=== PATIENT | female | born 1970 | race Hispanic/Latino ===

== ENCOUNTER 2017-05-05 00:41 | Emergency (ER) | payer SELFPAY ==
[2017-05-05] MEDS ORDERED: ONDANSETRON 4 MG (ODT) TAB ONE (02:17)
[2017-05-05] MEDS ORDERED: TRAMADOL HCL 50 MG TAB ONE (02:19)
--- NOTE | 2017-05-05 04:14 | ER ---
Nurse's Notes [facility] Name: Marilee Henderson Age: 46 yrs Sex: Female : 1970 Arrival Date: 05/05/2017 Time: 00:42 Bed 7 Private MD: Diagnosis: Acute headache. S/P head injury. Vomiting Presentation: 05/05 01:14 Presenting complaint: Patient states: she was leaning down yesterday and hit her head bb on the door causing her to see black and feel faint she has a headache and numbness around her mouth as well as abdominal pain, nausea, and vomiting. Transition of care: patient was not received from another setting of care. Onset of symptoms was May 04, 2017. Care prior to arrival: None. 01:14 Method Of Arrival: Ambulatory bb 01:14 Acuity: KEVIN 3 bb Triage Assessment: :16 General: Appears in no apparent distress. uncomfortable, Behavior is calm, cooperative. bb Pain: Complains of pain in head Pain currently is 10 out of 10 on a pain scale. Neuro: Level of Consciousness is awake, alert, obeys commands, Oriented to person, place, time, situation. Cardiovascular: No deficits noted. Respiratory: Respiratory effort is unlabored. GI: No deficits noted. Reports nausea, vomiting. Musculoskeletal: Circulation, motion, and sensation intact. 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 - Social history:: Smoking status: Patient/guardian denies using tobacco. Screenin:31 Abuse screen: Denies threats or abuse. Nutritional screening: No deficits noted. tl2 Tuberculosis screening: No symptoms or risk factors identified. Fall Risk None identified. Assessment: :31 General: Appears in no apparent distress. comfortable, Behavior is calm, cooperative, tl2 appropriate for age. Pain: Complains of pain in forehead. Neuro: Level of Consciousness is awake, alert, obeys commands, Oriented to person, place, time, situation. Cardiovascular: Denies chest pain. Respiratory: Airway is patent Respiratory effort is even, unlabored, Respiratory pattern is regular, symmetrical. GI: Reports nausea, vomiting. : No signs and/or symptoms were reported regarding the genitourinary system. Derm: Skin is pink, warm \T\ dry. 02:30 Reassessment: Patient appears in no apparent distress at this time. Patient and/or tl2 family updated on plan of care and expected duration. Pain level reassessed. Patient is alert, oriented x 3, equal unlabored respirations, skin warm/dry/pink. pt returned from CT. 04:33 Reassessment: Patient appears in no apparent distress at this time. Patient and/or tl2 family updated on plan of care and expected duration. Pain level reassessed. Patient is alert, oriented x 3, equal unlabored respirations, skin warm/dry/pink. Pt verbalized understanding of discharge instructions, need for follow up and prescription usage Patient states feeling better. Vital Signs: 01:16 BP 123 / 76; Pulse 78; Resp 18 S; Temp 97.3(TE); Pulse Ox 98% on R/A; Weight 81.65 kg bb (R); Height 5 ft. 0 in. (152.40 cm) (R); Pain 10/10; 02:51 BP 124 / 78; Pulse 70; Resp 18; Pulse Ox 98% on R/A; tl2 03:43 BP 114 / 74; Pulse 71; Resp 18; Pulse Ox 98% ; tl2 04:33 BP 125 / 84; Pulse 70; Resp 18; Pulse Ox 100% on R/A; tl2 01:16 Body Mass Index 35.15 (81.65 kg, 152.40 cm) ED Course: 00:42 Patient arrived in ED. al2 01:16 Triage completed. bb 01:16 Arm band placed on right wrist. bb 01:27 Keiry Pathak, RN is Primary Nurse. tl2 01:31 Patient has correct armband on for positive identification. Bed in low position. Call tl2 light in reach. Side rails up X2. 01:38 Yared Chapa MD is Attending Physician. pkl 03:06 CT completed. Patient tolerated procedure well. Patient moved to NV via stretcher. Patient moved back from CT. 04:33 No provider procedures requiring assistance completed. Patient did not have IV access tl2 during this emergency room visit. Administered Medications: 02:01 Drug: Zofran 4 mg Route: PO; tl2 04:35 Follow up: Response: No adverse reaction; Nausea is decreased tl2 02:01 Drug: traMADol 50 mg Route: PO; tl2 04:35 Follow up: Response: No adverse reaction; Pain is decreased tl2 Outcome: 04:13 Discharge ordered by . pknina 04:33 Discharged to home ambulatory, with family. tl2 04:33 Condition: stable 04:33 Discharge instructions given to patient, family, Instructed on discharge instructions, follow up and referral plans. medication usage, Demonstrated understanding of instructions, follow-up care, medications, Prescriptions given X 1. 04:36 Patient left the ED. tl2 Signatures: Yared Chapa MD MD pkl Hagler, Ervin eh Ballard, Brenda, RN RN Keiry Scott RN RN tl2 Angeli Tovar
--- NOTE | 2017-05-05 04:14 | EDPHYS ---
Physician Documentation [facility] Name: Marilee Henderson Age: 46 yrs Sex: Female : 1970 Arrival Date: 05/05/2017 Time: 00:42 Bed 7 Private MD: ED Physician Yared Chapa HPI: 05/05 01:50 This 46 yrs old Female presents to ER via Ambulatory with complaints of Fall pkl Injury, Nausea/Vomiting. 01:50 Details of fall: The patient fell from an upright position. Onset: The symptoms/episode pkl began/occurred yesterday. Associated injuries: The patient sustained injury to the head, contusion. Patient started vomiting X 3 today. 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 - Social history:: Smoking status: Patient/guardian denies using tobacco. ROS: 01:50 Eyes: Negative for injury, pain, redness, and discharge, ENT: Negative for injury, pkl pain, and discharge, Neck: Negative for injury, pain, and swelling, Cardiovascular: Negative for chest pain, palpitations, and edema, Respiratory: Negative for shortness of breath, cough, wheezing, and pleuritic chest pain, Abdomen/GI: Negative for abdominal pain, nausea, vomiting, diarrhea, and constipation, Back: Negative for injury and pain, : Negative for injury, bleeding, discharge, and swelling, MS/Extremity: Negative for injury and deformity, Skin: Negative for injury, rash, and discoloration. 01:50 Neuro: Positive for headache. Exam: 01:50 Head/Face: Normocephalic, atraumatic. Eyes: Pupils equal round and reactive to light, pkl extra-ocular motions intact. Lids and lashes normal. Conjunctiva and sclera are non-icteric and not injected. Cornea within normal limits. Periorbital areas with no swelling, redness, or edema. ENT: Nares patent. No nasal discharge, no septal abnormalities noted. Tympanic membranes are normal and external auditory canals are clear. Oropharynx with no redness, swelling, or masses, exudates, or evidence of obstruction, uvula midline. Mucous membranes moist. Neck: Trachea midline, no thyromegaly or masses palpated, and no cervical lymphadenopathy. Supple, full range of motion without nuchal rigidity, or vertebral point tenderness. No Meningismus. Chest/axilla: Normal chest wall appearance and motion. Nontender with no deformity. No lesions are appreciated. Cardiovascular: Regular rate and rhythm with a normal S1 and S2. No gallops, murmurs, or rubs. Normal PMI, no JVD. No pulse deficits. Respiratory: Lungs have equal breath sounds bilaterally, clear to auscultation and percussion. No rales, rhonchi or wheezes noted. No increased work of breathing, no retractions or nasal flaring. Abdomen/GI: Soft, non-tender, with normal bowel sounds. No distension or tympany. No guarding or rebound. No evidence of tenderness throughout. Back: No spinal tenderness. No costovertebral tenderness. Full range of motion. Skin: Warm, dry with normal turgor. Normal color with no rashes, no lesions, and no evidence of cellulitis. MS/ Extremity: Pulses equal, no cyanosis. Neurovascular intact. Full, normal range of motion. Neuro: Awake and alert, GCS 15, oriented to person, place, time, and situation. Cranial nerves II-XII grossly intact. Motor strength 5/5 in all extremities. Sensory grossly intact. Cerebellar exam normal. Normal gait. Vital Signs: 01:16 BP 123 / 76; Pulse 78; Resp 18 S; Temp 97.3(TE); Pulse Ox 98% on R/A; Weight 81.65 kg bb (R); Height 5 ft. 0 in. (152.40 cm) (R); Pain 10/10; 02:51 BP 124 / 78; Pulse 70; Resp 18; Pulse Ox 98% on R/A; tl2 03:43 BP 114 / 74; Pulse 71; Resp 18; Pulse Ox 98% ; tl2 04:33 BP 125 / 84; Pulse 70; Resp 18; Pulse Ox 100% on R/A; tl2 01:16 Body Mass Index 35.15 (81.65 kg, 152.40 cm) anh MDM: 01:39 Patient medically screened. pkl 04:12 Data reviewed: vital signs, nurses notes, radiologic studies, CT scan. pkl 05/05 01:46 Order name: CT Head Brain wo Cont pkl Administered Medications: 02:01 Drug: Zofran 4 mg Route: PO; tl2 04:35 Follow up: Response: No adverse reaction; Nausea is decreased tl2 02:01 Drug: traMADol 50 mg Route: PO; tl2 04:35 Follow up: Response: No adverse reaction; Pain is decreased tl2 Disposition: 05/05/17 04:13 Discharged to Home. Impression: Acute headache. S/P head injury. Vomiting. - Condition is Stable. - Prescriptions for Zofran 4 mg Oral Tablet - take 1 tablet by ORAL route every 12 hours As needed; 6 tablet. - Medication Reconciliation Form, Thank You Letter, Antibiotic Education, Prescription Opioid Use form. - Follow up: Private Physician; When: 2 - 3 days; Reason: Re-evaluation by your physician. - Problem is new. - Symptoms have improved. Signatures: Dispatcher [employer] EDYared Rivas MD MD pkl Augusta Barlow, RN RN Keiry Scott RN RN tl2
[2017-05-05 04:41] VITALS: TEMP 97.3
[2017-05-05 04:53] VITALS: BP 125/84; O2SAT 100
--- NOTE | 2017-05-05 11:15 | RAD REPORT ---
EXAM DESCRIPTION: CT - Head Brain Wo Cont - 05/05/2017 6:41 am CLINICAL HISTORY: Head injury status post fall. Concussion with nausea and vomiting and numbness COMPARISON: October 2016 TECHNIQUE: Computed axial tomography of the head was obtained. IV contrast was not requested.A preli minary report was given by virtual radiologic in review prior to this dictation. All CT scans are performed using dose optimization technique as appropriate and may include automated exposure control or mA/KV adjustment according to patient size. FINDINGS: An intracranial bleed is not seen . The ventricles are normal in caliber. No extra-axial fluid collection is noted. Moderate low-density areas within periventricular, deep and subcortical white matter likely represent ischemic changes secondary to small vessel disease. Fluid within the sinuses/ mastoids is not seen. IMPRESSION: No acute intracranial abnormality is seen. If patient's symptoms persist MRI of the bra in would be recommended.
== END 2017-05-05 04:36 | disposition home or self-care (01) ==
LOC: ER 00:41
DX: S09.90XA Unspecified injury of head, initial encounter (principal); R11.10 Vomiting, unspecified; W22.8XXA Striking against or struck by other objects, initial encounter; Y93.89 Activity, other specified; Y92.009 Unspecified place in unspecified non-institutional (private) residence as the place of occurrence of the external cause; E11.9 Type 2 diabetes mellitus without complications; F41.9 Anxiety disorder, unspecified
CPT/HCPCS: 70450; 99284

== ENCOUNTER 2017-08-19 21:21 | Emergency (ER) | payer SELFPAY ==
[2017-08-19] MEDS ORDERED: KETOROLAC 30 MG/ML INJ ONE (22:27)
[2017-08-19] MEDS ORDERED: NA CHLORIDE 0.9% 500 ML ONE (22:28)
[2017-08-19 22:42] LABS: Absolute Lymphocytes (CBC) 2.2 K/uL (0.7-4.9); Absolute Monocytes 0.3 K/uL (0.1-1.3); Absolute Neutrophil 3.4 K/uL (1.8-8.0); Basophils % 0.6 % (0-1.3); Eosinophils % 0.6 % (0-4.4); Hematocrit 41.3 % (36.0-45.0); Lymphocytes % 36.7 % (15.3-44.8); MCH 29.2 pg (27.0-35.0); MCV 86.5 fL (80-100); MPV 9.5 fL (7.6-11.3); Monocytes % 5.5 % (3.3-12.3); RBC Red Blood Cell Count 4.77 M/uL (3.86-4.86)
[2017-08-19 23:06] LABS: ALT/SGPT 38 U/L (12-78); AST/SGOT 27 U/L (15-37); Albumin 3.7 g/dL (3.4-5.0); Alkaline Phosphatase 81 U/L (45-117); BUN Blood Urea Nitrogen 13 mg/dL (7-18); Bicarbonate 29 mmol/L (21-32); Bilirubin Total 0.3 mg/dL (0.2-1.0); Potassium 3.6 mmol/L (3.5-5.1); Protein, Total 7.4 g/dL (6.4-8.2); Sodium Level 135 mmol/L (136-145)
[2017-08-19 23:08] LABS: Glucose Level 450 mg/dL (74-106)
--- NOTE | 2017-08-19 23:41 | ER ---
Nurse's Notes [facility] Name: Marilee Henderson Age: 46 yrs Sex: Female : 1970 Arrival Date: 08/19/2017 Time: 21:22 Bed 28 Private MD: Foreign Gutierrez H Diagnosis: Low back pain;Type 2 diabetes mellitus-neuropathy, uncontrolled Presentation: 08/19 21:24 Presenting complaint: Significant other states: "She is having weakness in both legs. lk1 Especially in her bones and it hurts to walk. Its been like that for quite a while. The left side hurts all the way to her back.". Transition of care: patient was not received from another setting of care. Onset of symptoms was August 05, 2017. Risk Assessment: Do you want to hurt yourself or someone else? Patient reports no desire to harm self or others. Initial Sepsis Screen: Does the patient meet any 2 criteria? No. Patient's initial sepsis screen is negative. Does the patient have a suspected source of infection? No. Patient's initial sepsis screen is negative. Care prior to arrival: None. 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 - Social history:: Smoking status: Patient/guardian denies using tobacco. - Ebola Screening: : No symptoms or risks identified at this time. - Family history:: not pertinent. Screenin:36 Abuse screen: Denies threats or abuse. Nutritional screening: No deficits noted. mb3 Tuberculosis screening: No symptoms or risk factors identified. Fall Risk No fall in past 12 months (0 pts). Secondary diagnosis (15 points) No IV (0 pts). Ambulatory Aid- Crutches/Cane/Walker (15 pts). Gait- Weak (10 pts.). Mental Status- Overestimates/Forgets Limitations (15 pts.). Total Dailey Fall Scale indicates High Risk Score (45 or more points). Fall prevention measures have been instituted. Side Rails Up X 2 Placed Close to Nursing Station Frequent Obs/Assessments Occuring Family Present and informed to notify staff if the need to leave the bedside As available patient and family educated on Fall Prevention Program and Strategies. Assessment: 22:44 General: Appears in no apparent distress. comfortable, Behavior is calm, cooperative, mb3 appropriate for age. Pain: Complains of pain in pt having pain to lower back radiating down legs. Neuro: No deficits noted. Cardiovascular: No deficits noted. Respiratory: No deficits noted. GI: No deficits noted. No signs and/or symptoms were reported involving the gastrointestinal system. Vital Signs: 21:26 BP 141 / 71; Pulse 80; Resp 14; Temp 97.0(TE); Pulse Ox 99% on R/A; Weight 83.91 kg lk1 (R); Height 5 ft. 5 in. (165.10 cm) (R); Pain 10/10; 08/20 01:16 BP 137 / 85; Pulse 93; Resp 20; Pulse Ox 99% on R/A; mb3 08/19 21:26 Body Mass Index 30.79 (83.91 kg, 165.10 cm) lk1 ED Course: 08/19 21:22 Patient arrived in ED. es 21:23 Foreign Gutierrez DO is Private Physician. es 21:26 Triage completed. lk1 21:28 Arm band placed on left wrist. lk1 21:31 Chong Jones, CATERINA is Primary Nurse. mb3 21:48 Marvin Salazar MD is Attending Physician. carline 22:29 Inserted saline lock: 20 gauge in left antecubital area, using aseptic technique. Blood mb3 collected. 22:35 Lumbar Spine (3 Views) XRAY Sent. mb3 22:45 X-ray completed. Patient tolerated procedure well. la2 22:45 Lumbar Spine (3 Views) XRAY In Process Unspecified. EDMS 23:08 Notified ED physician of a critical lab result(s). glucose 450. fc 23:40 Foreign Gutierrez DO is Referral Physician. carline 08/20 01:16 No provider procedures requiring assistance completed. IV discontinued, intact, mb3 bleeding controlled, No redness/swelling at site. Pressure dressing applied. 01:17 Patient has correct armband on for positive identification. mb3 Administered Medications: 08/19 22:30 Drug: NS 0.9% 500 ml Route: IV; Rate: bolus; Site: left antecubital; mb3 08/20 00:29 Follow up: Response: No adverse reaction; IV Status: Completed infusion; IV Intake: mb3 500ml 08/19 22:30 Drug: TORadol 30 mg Route: IVP; Site: left antecubital; mb3 08/20 00:29 Follow up: Response: No adverse reaction mb3 00:10 Drug: Insulin Regular Human 10 units {Co-Signature: greg (Yary Goncalves RN).} Route: mb3 IVP; Site: left antecubital; 00:30 Follow up: Response: No adverse reaction mb3 00:10 Drug: Insulin Regular Human 10 units {Co-Signature: greg (Yary Goncalves RN).} Route: mb3 Sub-Q; Site: left upper arm; 00:30 Follow up: Response: No adverse reaction mb3 00:12 Drug: metFORMIN 1000 mg Route: PO; mb3 00:30 Follow up: Response: No adverse reaction mb3 00:29 Drug: NS 0.9% 500 ml Route: IV; Rate: bolus; Site: left antecubital; mb3 01:15 Follow up: Response: No adverse reaction; IV Status: Completed infusion; IV Intake: mb3 1000ml Point of Care Testing: Blood Glucose: 01:16 Blood Glucose: 213 mg/dL; mb3 Ranges: Intake: 00:29 IV: 500ml; Total: 500ml. mb3 01:15 IV: 1000ml; Total: 1500ml. mb3 Outcome: 08/19 23:40 Discharge ordered by MD. crowley 08/20 01:16 Discharged to home ambulatory, with family. mb3 Condition: stable Discharge instructions given to patient, family, Instructed on discharge instructions, follow up and referral plans. medication usage, Demonstrated understanding of instructions, follow-up care, medications. 01:17 Prescriptions given X x5 mb3 01:18 Patient left the ED. mb3 Addendum: 08/25/2017 17:15 Addendum: Culture Results: Positive urine culture. Patient was not prescribed i w antibiotics at discharge. Report given to MAITE for further evaluation and then to road driver for follow up with patient. Phone call Attempt #1 initially left voice mail, called back and stated pt was feeling better, asymptomatic for UTI symptoms. Signatures: Dispatcher [employer] Marvin Mosqueda MD MD cha Salyer, Edna es Chretien, Felicia, RN RN fc Lamar Mack RN RN iw Kluge, Leah, RN RN lk1 Leigh Bhakta Mark, RN RN mb3 Yary Goncalves RN fc
--- NOTE | 2017-08-19 23:41 | EDPHYS ---
Physician Documentation [facility] Name: Marilee Henderson Age: 46 yrs Sex: Female : 1970 Arrival Date: 08/19/2017 Time: 21:22 Bed 28 Private MD: Foreign Gutierrez H ED Physician Marvin Salazar HPI: 08/19 22:07 This 46 yrs old Female presents to ER via Ambulatory with complaints of LEG carline WEAKNESS AND PAIN. 22:07 The patient presents with pain. The complaints affect the right leg and left leg. carline Context: The problem was sustained. Onset: The symptoms/episode began/occurred 3 month(s) ago. Modifying factors: The symptoms are alleviated by nothing. the symptoms are aggravated by nothing. Associated signs and symptoms: The patient has no apparent associated signs or symptoms. Treatment prior to arrival includes: no previous treatment. Severity of symptoms: At their worst the symptoms were mild, moderate, in the emergency department the symptoms are unchanged. The patient has experienced similar episodes in the past, multiple times. 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 - Social history:: Smoking status: Patient/guardian denies using tobacco. - Ebola Screening: : No symptoms or risks identified at this time. - Family history:: not pertinent. ROS: 22:07 Constitutional: Negative for fever, chills, and weight loss, Eyes: Negative for injury, carline pain, redness, and discharge, ENT: Negative for injury, pain, and discharge, Neck: Negative for injury, pain, and swelling, Cardiovascular: Negative for chest pain, palpitations, and edema, Respiratory: Negative for shortness of breath, cough, wheezing, and pleuritic chest pain, Abdomen/GI: Negative for abdominal pain, nausea, vomiting, diarrhea, and constipation, Back: Negative for injury and pain, : Negative for injury, bleeding, discharge, and swelling, Skin: Negative for injury, rash, and discoloration, Neuro: Negative for headache, weakness, numbness, tingling, and seizure, Psych: Negative for depression, anxiety, suicide ideation, homicidal ideation, and hallucinations, Allergy/Immunology: Negative for hives, rash, and allergies, Endocrine: Negative for neck swelling, polydipsia, polyuria, polyphagia, and marked weight changes, Hematologic/Lymphatic: Negative for swollen nodes, abnormal bleeding, and unusual bruising. 22:07 MS/extremity: Positive for pain, of the right leg and left leg. Exam: 22:07 Constitutional: This is a well developed, well nourished patient who is awake, alert, carline and in no acute distress. Head/Face: Normocephalic, atraumatic. Eyes: Pupils equal round and reactive to light, extra-ocular motions intact. Lids and lashes normal. Conjunctiva and sclera are non-icteric and not injected. Cornea within normal limits. Periorbital areas with no swelling, redness, or edema. ENT: Nares patent. No nasal discharge, no septal abnormalities noted. Tympanic membranes are normal and external auditory canals are clear. Oropharynx with no redness, swelling, or masses, exudates, or evidence of obstruction, uvula midline. Mucous membranes moist. Neck: Trachea midline, no thyromegaly or masses palpated, and no cervical lymphadenopathy. Supple, full range of motion without nuchal rigidity, or vertebral point tenderness. No Meningismus. Chest/axilla: Normal chest wall appearance and motion. Nontender with no deformity. No lesions are appreciated. Cardiovascular: Regular rate and rhythm with a normal S1 and S2. No gallops, murmurs, or rubs. Normal PMI, no JVD. No pulse deficits. Respiratory: Lungs have equal breath sounds bilaterally, clear to auscultation and percussion. No rales, rhonchi or wheezes noted. No increased work of breathing, no retractions or nasal flaring. Abdomen/GI: Soft, non-tender, with normal bowel sounds. No distension or tympany. No guarding or rebound. No evidence of tenderness throughout. Back: No spinal tenderness. No costovertebral tenderness. Full range of motion. Skin: Warm, dry with normal turgor. Normal color with no rashes, no lesions, and no evidence of cellulitis. MS/ Extremity: Pulses equal, no cyanosis. Neurovascular intact. Full, normal range of motion. Neuro: Awake and alert, GCS 15, oriented to person, place, time, and situation. Cranial nerves II-XII grossly intact. Motor strength 5/5 in all extremities. Sensory grossly intact. Cerebellar exam normal. Normal gait. Psych: Awake, alert, with orientation to person, place and time. Behavior, mood, and affect are within normal limits. 22:07 Musculoskeletal/extremity: ROM: full active range of motion, full passive range of motion, Circulation is intact in all extremities. Sensation intact. Compartment Syndrome exam of affected extremity: is normal. DVT Exam: no swelling, no tenderness, negative Homans' sign noted on exam, no appreciated bluish discoloration, no erythema, no increased warmth, pain. Vital Signs: 21:26 BP 141 / 71; Pulse 80; Resp 14; Temp 97.0(TE); Pulse Ox 99% on R/A; Weight 83.91 kg lk1 (R); Height 5 ft. 5 in. (165.10 cm) (R); Pain 10/10; 08/20 01:16 BP 137 / 85; Pulse 93; Resp 20; Pulse Ox 99% on R/A; mb3 08/19 21:26 Body Mass Index 30.79 (83.91 kg, 165.10 cm) lk1 MDM: 08/19 21:48 Patient medically screened. [facility] 08/19 22:07 Order name: CBC with Diff; Complete Time: 23:00 [facility] 08/19 22:07 Order name: Comprehensive Metabolic Panel; Complete Time: 23:38 [facility] 08/19 22:07 Order name: Lumbar Spine (3 Views) XRAY [facility] 08/19 22:59 Order name: Urine Culture [facility] 08/20 00:20 Order name: Urine Dipstick--Ancillary (enter results) 08/19 22:59 Order name: Urine Dipstick-Ancillary (obtain specimen); Complete Time: 00:23 [facility] Administered Medications: 22:30 Drug: NS 0.9% 500 ml Route: IV; Rate: bolus; Site: left antecubital; mb3 08/20 00:29 Follow up: Response: No adverse reaction; IV Status: Completed infusion; IV Intake: mb3 500ml 08/19 22:30 Drug: TORadol 30 mg Route: IVP; Site: left antecubital; mb3 08/20 00:29 Follow up: Response: No adverse reaction mb3 00:10 Drug: Insulin Regular Human 10 units {Co-Signature: greg (Yary Goncalves RN).} Route: mb3 IVP; Site: left antecubital; 00:30 Follow up: Response: No adverse reaction mb3 00:10 Drug: Insulin Regular Human 10 units {Co-Signature: greg (Yary Goncalves RN).} Route: mb3 Sub-Q; Site: left upper arm; 00:30 Follow up: Response: No adverse reaction mb3 00:12 Drug: metFORMIN 1000 mg Route: PO; mb3 00:30 Follow up: Response: No adverse reaction mb3 00:29 Drug: NS 0.9% 500 ml Route: IV; Rate: bolus; Site: left antecubital; mb3 01:15 Follow up: Response: No adverse reaction; IV Status: Completed infusion; IV Intake: mb3 1000ml Point of Care Testing: Blood Glucose: 01:16 Blood Glucose: 213 mg/dL; mb3 Ranges: Critical Glucose Levels:Adult <50 mg/dl or >400 mg/dl <40 mg/dl or >180 mg/dl Disposition: 08/19/17 23:40 Discharged to Home. Impression: Low back pain, Type 2 diabetes mellitus - neuropathy, uncontrolled. - Condition is Stable. - Discharge Instructions: Type 2 Diabetes Mellitus, Adult, Diabetic Neuropathy, Type 2 Diabetes Mellitus, Adult, [id number]. - Prescriptions for gabapentin 300 mg Oral capsule - take 1 capsule by ORAL route 2 times per day; 60 capsule. Tylenol- Codeine #3 300-30 mg Oral Tablet - take 2 tablets by ORAL route every 6 hours As needed; 26 tablet. Skelaxin 800 mg Oral Tablet - take 1 tablet by ORAL route every 8 hours As needed; 30 tablet. Motrin IB 200 mg Oral Tablet - take 2 tablet by ORAL route every 6 hours As needed as needed with food; 30 tablet. Metformin 1,000 mg Oral Tablet - take 1 tablet by ORAL route every 12 hours with morning and evening meals; 20 tablet. - Medication Reconciliation Form, Thank You Letter, Antibiotic Education, Prescription Opioid Use form. - Follow up: Foreign Gutierrez; When: 2 - 3 days; Reason: Recheck today's complaints, Continuance of care, Re-evaluation by your physician. - Problem is new. - Symptoms have improved. Signatures: Dispatcher [employer] EDMarvin Chong MD MD cha Kluge, Leah, RN RN lk1 Chong Jones, RN RN mb3 Yary Goncalves RN fc Corrections: (The following items were deleted from the chart) 01:18 07 23:40 08/19/2017 23:40 Discharged to Home. Impression: Low back pain; Type 2 mb3 diabetes mellitus - neuropathy, uncontrolled. Condition is Stable. Discharge Instructions: Type 2 Diabetes Mellitus, Adult, Diabetic Neuropathy, Type 2 Diabetes Mellitus, Adult, [id number]. Prescriptions for gabapentin 300 mg Oral capsule - take 1 capsule by ORAL route 2 times per day; 60 capsule, Tylenol-Codeine #3 300-30 mg Oral Tablet - take 2 tablets by ORAL route every 6 hours As needed; 26 tablet, Skelaxin 800 mg Oral Tablet - take 1 tablet by ORAL route every 8 hours As needed; 30 tablet, Motrin IB 200 mg Oral Tablet - take 2 tablet by ORAL route every 6 hours As needed as needed with food; 30 tablet. and Forms are Medication Reconciliation Form, Thank You Letter, Antibiotic Education, Prescription Opioid Use. Follow up: Foreign Gutierrez; When: 2 - 3 days; Reason: Recheck today's complaints, Continuance of care, Re-evaluation by your physician. Problem is new. Symptoms have improved. carline
[2017-08-20] MEDS ORDERED: NA CHLORIDE 0.9% 1,000 ML ONE (00:08)
[2017-08-20] MEDS ORDERED: METFORMIN HCL 500 MG TAB ONE (00:08)
[2017-08-20] MEDS ORDERED: INSULIN -REGULAR HUMAN 50 UNIT/0.5 ML ML ONE (00:08)
[2017-08-20 00:24] LABS: Urine Blood 1+ (NEG); Urine Glucose 2+ (NEG); Urine Protein NEGATIVE (NEG)
[2017-08-20 01:42] VITALS: TEMP 97; O2SAT 99
[2017-08-20 01:44] VITALS: BP 137/85
--- NOTE | 2017-08-20 06:51 | RAD REPORT ---
EXAM DESCRIPTION: RAD - Lumbar Spine 3 Views - 08/19/2017 10:49 pm CLINICAL HISTORY: Back pain, left lower extremity pain, bilateral leg weakness COMPARISON: None. FINDINGS: A three-view lumbar spine examination was performed. Lumbar bodies are normal in height an d normal in AP alignment. Very minimal left convex curvature of the lumbar spine is present. No fract ure or acute bony process seen. L2-3 disc space narrowing present with mild endplate spurring. No sig nificant facet joint degenerative change. No pars defects identified. IMPRESSION: Disc and endplate degenerative change at L2-3. No acute findings. Concerns for disc herniation, central canal abnormality or occult bone process can be addressed with MR imaging.
== END 2017-08-20 01:18 | disposition home or self-care (01) ==
LOC: ER 21:21
DX: E11.40 Type 2 diabetes mellitus with diabetic neuropathy, unspecified (principal); E11.65 Type 2 diabetes mellitus with hyperglycemia
CPT/HCPCS: 36415; 72100; 80053; 81003; 82962; 85025; 87077; 87086; 87088; 87186; 96361; 96372; 96374; 96375; 99284; J7030

== ENCOUNTER 2018-01-28 18:12 | Emergency (ER) | payer SELFPAY ==
--- NOTE | 2018-01-28 19:03 | ER ---
Nurse's Notes [facility] Name: Marilee Henderson Age: 47 yrs Sex: Female : 1970 Arrival Date: 01/28/2018 Time: 18:15 Bed 28 Private MD: Foreign Gutierrez H Diagnosis: Diabetes mellitus due to underlying condition with diabetic neuropathy, unspecified;Medication Refill Presentation: 01/28 18:16 Presenting complaint: Child states: shes been complaining of pain on bilateral legs for hj months now and its getting worse; reports swelling; reports SOB; denies fever and chills;. Transition of care: patient was not received from another setting of care. Onset of symptoms was January 28, 2018. Risk Assessment: Do you want to hurt yourself or someone else? Patient reports no desire to harm self or others. Initial Sepsis Screen: Does the patient meet any 2 criteria? No. Patient's initial sepsis screen is negative. Does the patient have a suspected source of infection? No. Patient's initial sepsis screen is negative. Care prior to arrival: None. 18:16 Method Of Arrival: Ambulatory 18:16 Acuity: KEVIN 3 hj Triage Assessment: 18:19 General: Appears in no apparent distress. uncomfortable, Behavior is calm, cooperative, hj appropriate for age. Pain: Complains of pain in right leg and left leg Pain currently is 10 out of 10 on a pain scale. 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 - Social history:: Smoking status: Patient/guardian denies using tobacco, Patient/guardian denies using alcohol. - Ebola Screening: : Patient negative for fever greater than or equal to 101.5 degrees Fahrenheit, and additional compatible Ebola Virus Disease symptoms Patient denies exposure to infectious person Patient denies travel to an Ebola-affected area in the 21 days before illness onset. - Family history:: not pertinent. - Hospitalizations: : No recent hospitalization is reported. - History obtained from: spouse. Screenin:19 Abuse screen: Denies threats or abuse. Denies injuries from another. Nutritional hj screening: No deficits noted. Tuberculosis screening: No symptoms or risk factors identified. Fall Risk None identified. Assessment: 18:35 General: Appears in no apparent distress. comfortable, well groomed, well developed, kr2 well nourished, Behavior is calm, cooperative, appropriate for age. Pain: Complains of pain in lower back Pain radiates to right leg and left leg both legs but is worse in left leg Pain currently is 5 out of 10 on a pain scale. Quality of pain is described as aching, sharp, shooting, Pain began gradually, Is continuous, Alleviated by rest, Aggravated by increased activity. Neuro: Level of Consciousness is awake, alert, obeys commands, Oriented to person, place, time, situation, Appropriate for age Radio Officer are equal bilaterally Moves all extremities. Tingling in left foot and left leg. Cardiovascular: Capillary refill < 3 seconds in bilateral fingers Patient's skin is warm and dry. Respiratory: Airway is patent Respiratory effort is even, unlabored, Respiratory pattern is regular, symmetrical, Breath sounds are clear bilaterally. GI: Abdomen is flat, non-distended. EENT: Oral mucosa is moist. Derm: Skin is intact, is healthy with good turgor, Skin is pink, warm \T\ dry. Musculoskeletal: Circulation, motion, and sensation intact. 19:22 Reassessment: Patient appears in no apparent distress at this time. Patient and/or kr2 family updated on plan of care and expected duration. Pain level reassessed. Patient is alert, oriented x 3, equal unlabored respirations, skin warm/dry/pink. Patient and family verbalized understanding of importance of patient following up with primary doctor for DM management. Vital Signs: 18:19 BP 134 / 72; Pulse 84; Resp 18; Temp 98.4(TE); Pulse Ox 100% on R/A; Weight 68.04 kg; hj Height 5 ft. 2 in. (157.48 cm); Pain 10/10; 19:22 BP 130 / 68; Pulse 80; Resp 16; Pulse Ox 99% ; kr2 18:19 Body Mass Index 27.44 (68.04 kg, 157.48 cm) ED Course: 18:15 Patient arrived in ED. sb2 18:15 Foreign Gutierrez DO is Private Physician. sb2 18:18 Triage completed. hj 18:19 Arm band placed on left wrist. hj 18:21 Patient has correct armband on for positive identification. Placed in gown. Bed in low hj position. Call light in reach. Side rails up X 1. Adult w/ patient. 18:32 Debbie Sanders FNP is PHCP. kav 18:32 Gokul Cardona MD is Attending Physician. kav 18:35 Vani Beach, CATERINA is Primary Nurse. kr2 19:01 Foreign Gutierrez DO is Referral Physician. kav 19:23 No provider procedures requiring assistance completed. kr2 19:23 Patient did not have IV access during this emergency room visit. kr2 Administered Medications: No medications were administered Point of Care Testing: Blood Glucose: 19:24 Blood Glucose: 391 mg/dL; kr2 19:24 Reported to NICOLE Rodrigues. No new orders kr2 Ranges: Outcome: 19:03 Discharge ordered by . kav 19:23 Discharged to home ambulatory, with family. kr2 19:23 Condition: good 19:23 Discharge instructions given to patient, family, Instructed on discharge instructions, follow up and referral plans. medication usage, Demonstrated understanding of instructions, follow-up care, medications, Prescriptions given X 3. 19:25 Patient left the ED. kr2 Signatures: Debbie Sanders FNP DRY PAN OPERATOR kaNaren Batista RN RN Vani Beach RN RN kr2 Livia Knowles sb2 Corrections: (The following items were deleted from the chart) 18:22 18:19 68.04 kg; Height 5 ft. 2 in.; BMI: 27.4; Pain 10/10; hj hj 18:23 18:19 Pulse 84bpm; Resp 18bpm; Pulse Ox 100% RA; Temp 98.4F Temporal; 68.04 kg; Height hj 5 ft. 2 in.; BMI: 27.4; Pain 10/10; hj 19:24 18:56 Blood Glucose: Notes=Reported to NICOLE Rodrigues, Blood Glucose Ukbmczd=703 mg/dL. kr2 kr2 19:24 19:22 Reassessment: Patient appears in no apparent distress at this time. Patient kr2 and/or family updated on plan of care and expected duration. Pain level reassessed. Patient is alert, oriented x 3, equal unlabored respirations, skin warm/dry/pink. kr2
--- NOTE | 2018-01-28 19:03 | EDPHYS ---
Physician Documentation [facility] Name: Marilee Henderson Age: 47 yrs Sex: Female : 1970 Arrival Date: 01/28/2018 Time: 18:15 Bed 28 Private MD: Foreign Gutierrez H ED Physician Gokul Cardona HPI: 01/28 18:32 This 47 yrs old Female presents to ER via Ambulatory with complaints of Leg kav Pain. 18:54 The patient presents with pain, that is chronic. The complaints affect the right leg kav and left leg. Context: resulted from Ran out of her diabetic medication Metformin 1000 mg po bid, Gabapentin 300 mg po bid and Skelaxin 800 mg po q 8 hours approximately 2 months ago and needs a medication refill. She reports that she has not seen her PCP/Dr. Gutierrez as she has no money to go and see the physician.. Onset: The symptoms/episode began/occurred 2 month(s) ago, and became worse. Severity of symptoms: At their worst the symptoms were moderate, this morning. The patient has experienced similar episodes in the past, chronically. The patient has not recently seen a physician. 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 - Social history:: Smoking status: Patient/guardian denies using tobacco, Patient/guardian denies using alcohol. - Ebola Screening: : Patient negative for fever greater than or equal to 101.5 degrees Fahrenheit, and additional compatible Ebola Virus Disease symptoms Patient denies exposure to infectious person Patient denies travel to an Ebola-affected area in the 21 days before illness onset. - Family history:: not pertinent. - Hospitalizations: : No recent hospitalization is reported. - History obtained from: spouse. ROS: 18:57 Constitutional: Negative for fever, chills, and weight loss, Eyes: Negative for injury, kav pain, redness, and discharge, ENT: Negative for injury, pain, and discharge, Neck: Negative for injury, pain, and swelling, Cardiovascular: Negative for chest pain, palpitations, and edema, Respiratory: Negative for shortness of breath, cough, wheezing, and pleuritic chest pain, Abdomen/GI: Negative for abdominal pain, nausea, vomiting, diarrhea, and constipation, Back: Negative for injury and pain, : Negative for injury, bleeding, discharge, and swelling, Skin: Negative for injury, rash, and discoloration, Neuro: Negative for headache, weakness, numbness, tingling, and seizure, Psych: Negative for depression, anxiety, suicide ideation, homicidal ideation, and hallucinations, Allergy/Immunology: Negative for hives, rash, and allergies, Endocrine: Negative for neck swelling, polydipsia, polyuria, polyphagia, and marked weight changes, Hematologic/Lymphatic: Negative for swollen nodes, abnormal bleeding, and unusual bruising. 18:57 MS/extremity: Positive for pain, tingling, of the left leg and right leg, Negative for injury or acute deformity, decreased range of motion, ecchymosis, erythema. Exam: 18:57 Constitutional: This is a well developed, well nourished patient who is awake, alert, kav and in no acute distress. Head/Face: Normocephalic, atraumatic. Eyes: Pupils equal round and reactive to light, extra-ocular motions intact. Lids and lashes normal. Conjunctiva and sclera are non-icteric and not injected. Cornea within normal limits. Periorbital areas with no swelling, redness, or edema. ENT: Nares patent. No nasal discharge, no septal abnormalities noted. Tympanic membranes are normal and external auditory canals are clear. Oropharynx with no redness, swelling, or masses, exudates, or evidence of obstruction, uvula midline. Mucous membranes moist. Neck: Trachea midline, no thyromegaly or masses palpated, and no cervical lymphadenopathy. Supple, full range of motion without nuchal rigidity, or vertebral point tenderness. No Meningismus. Chest/axilla: Normal chest wall appearance and motion. Nontender with no deformity. No lesions are appreciated. Cardiovascular: Regular rate and rhythm with a normal S1 and S2. No gallops, murmurs, or rubs. Normal PMI, no JVD. No pulse deficits. Respiratory: Lungs have equal breath sounds bilaterally, clear to auscultation and percussion. No rales, rhonchi or wheezes noted. No increased work of breathing, no retractions or nasal flaring. Abdomen/GI: Soft, non-tender, with normal bowel sounds. No distension or tympany. No guarding or rebound. No evidence of tenderness throughout. Back: No spinal tenderness. No costovertebral tenderness. Full range of motion. Skin: Warm, dry with normal turgor. Normal color with no rashes, no lesions, and no evidence of cellulitis. Neuro: Awake and alert, GCS 15, oriented to person, place, time, and situation. Cranial nerves II-XII grossly intact. Motor strength 5/5 in all extremities. Sensory grossly intact. Cerebellar exam normal. Normal gait. Psych: Awake, alert, with orientation to person, place and time. Behavior, mood, and affect are within normal limits. 18:57 Musculoskeletal/extremity: Extremities: noted in the right leg: pain, noted in the left leg: pain, ROM: no acute changes, full active range of motion, in all extremities, full passive range of motion, in all extremities, Circulation is intact in all extremities. Pulses: are normal with no appreciated deficits, Perfusion: the patient is normally perfused throughout, pink, warm, noted to have brisk capillary refill, Perfusion: the extremity is normally perfused throughout, pink, warm, with brisk capillary refill, Calf tenderness, is absent, bilaterally, Edema, is not appreciated, Sensation intact. Tingling of extremity. Weight bearing: able to fully bear weight, without difficulty, Tendon exam: specific tendon testing normal through active and passive range of motion DVT Exam: No signs of deep vein thrombosis. Vital Signs: 18:19 BP 134 / 72; Pulse 84; Resp 18; Temp 98.4(TE); Pulse Ox 100% on R/A; Weight 68.04 kg; hj Height 5 ft. 2 in. (157.48 cm); Pain 10/10; 19:22 BP 130 / 68; Pulse 80; Resp 16; Pulse Ox 99% ; kr2 18:19 Body Mass Index 27.44 (68.04 kg, 157.48 cm) MDM: 18:32 Medical screening is not applicable. kav 18:57 Differential diagnosis: diabetic neuropathy, dvt. Data reviewed: vital signs, nurses kav notes. Counseling: I had a detailed discussion with the patient and/or guardian regarding: the historical points, exam findings, and any diagnostic results supporting the discharge/admit diagnosis, the need for outpatient follow up, a family practitioner. 01/28 18:54 Order name: MISAEL; Complete Time: 18:57 kav Administered Medications: No medications were administered Point of Care Testing: Blood Glucose: 19:24 Blood Glucose: 391 mg/dL; kr2 19:24 Reported to NICOLE Rodrigues. No new orders kr2 Ranges: Critical Glucose Levels:Adult <50 mg/dl or >400 mg/dl <40 mg/dl or >180 mg/dl Disposition: 01/29 07:36 Co-signature as Attending Physician, Gokul Cardona MD. rn Disposition: 01/28/18 19:03 Discharged to Home. Impression: Diabetes mellitus due to underlying condition with diabetic neuropathy, unspecified, Medication Refill. - Condition is Stable. - Discharge Instructions: Diabetes and Foot Care, Medicine Refill at the Emergency Department, Neuropathic Pain, Diabetic Neuropathy, Blood Glucose Monitoring, Adult, Diabetes and Exercise. - Prescriptions for Metformin 1,000 mg Oral Tablet - take 1 tablet by ORAL route every 12 hours with morning and evening meals; 60 tablet. Neurontin 300 mg Oral Capsule - take 1 capsule by ORAL route every 8 hours; 30 capsule. Cyclobenzaprine 10 mg Oral Tablet - take 1 tablet by ORAL route every 8 hours As needed; 30 tablet. - Medication Reconciliation Form, Thank You Letter form. - Follow up: Foreign Gutierrez DO; When: 5 - 6 days; Reason: Recheck today's complaints, Continuance of care, Re-evaluation by your physician. - Problem is chronic. - Symptoms are unchanged. - Notes: follow-up with your pcp/dr. gutierrez for further evaluation and treatment of your diabetes mellitus Signatures: Debbie Sanders, MATERIALS ENGINEER MATERIALS ENGINEER Gokul Bain MD MD rn Joaquin, Henry, RN RN hj Reaves, Karey, RN RN kr2 Corrections: (The following items were deleted from the chart) 01/28 19:25 19:03 01/28/2018 19:03 Discharged to Home. Impression: Diabetes mellitus due to kr2 underlying condition with diabetic neuropathy, unspecified; Medication Refill. Condition is Stable. Forms are Medication Reconciliation Form, Thank You Letter, Antibiotic Education, Prescription Opioid Use. Follow up: Foreign Gutierrez; When: 5 - 6 days; Reason: Recheck today's complaints, Continuance of care, Re-evaluation by your physician. Problem is chronic. Symptoms are unchanged. kav
[2018-01-28 19:37] VITALS: TEMP 98.4
[2018-01-28 19:38] VITALS: BP 130/68; O2SAT 99
== END 2018-01-28 19:25 | disposition home or self-care (01) ==
LOC: ER 18:12
DX: E11.40 Type 2 diabetes mellitus with diabetic neuropathy, unspecified (principal)
CPT/HCPCS: 82962; 99282

== ENCOUNTER 2018-09-20 19:11 | Emergency (ER) | payer SELFPAY ==
[2018-09-20 20:33] LABS: Urine Blood 1+ (NEG); Urine Glucose 2+ (NEG); Urine Protein NEGATIVE (NEG); Urine Specific Gravity <1.005 (1.005-1.030); Urine pH 5.5 (5.0-7.0)
[2018-09-20 20:37] LABS: Urine Bacteria 20-50 /HPF (<20); Urine Culture Reflex Order REFLEXED; Urine RBC <5 /HPF (NONE SEEN); Urine Yeast PRESENT (NONE SEEN)
[2018-09-20 20:53] LABS: Absolute Lymphocytes (CBC) 2.1 K/uL (0.7-4.9); Basophils % 0.4 % (0-1.3); Lymphocytes % 34.9 % (15.3-44.8); MPV 9.4 fL (7.6-11.3); RBC Red Blood Cell Count 4.71 M/uL (3.86-4.86)
[2018-09-20 21:14] LABS: ALT/SGPT 31 U/L (12-78); AST/SGOT 12 U/L (15-37); Albumin 3.5 g/dL (3.4-5.0); Alkaline Phosphatase 86 U/L (45-117); BUN Blood Urea Nitrogen 10 mg/dL (7-18); Bicarbonate 28 mmol/L (21-32); Bilirubin Direct < 0.1 mg/dL (0-0.2); Bilirubin Total 0.2 mg/dL (0.2-1.0); Lipase 174 U/L (73-393); Potassium 4.2 mmol/L (3.5-5.1); Protein, Total 7.1 g/dL (6.4-8.2); Sodium Level 135 mmol/L (136-145)
[2018-09-20 21:16] LABS: Glucose Level 470 mg/dL (74-106)
[2018-09-20] MEDS ORDERED: CEFTRIAXONE 1000 MG/VIAL ONE (22:20)
[2018-09-20] MEDS ORDERED: INSULIN -REGULAR HUMAN 50 UNIT/0.5 ML ML ONE (22:20)
[2018-09-20] MEDS ORDERED: NA CHLORIDE 0.9% 1,000 ML ONE (22:20)
[2018-09-20] MEDS ORDERED: NA CHLORIDE 0.9% 100 ML IV ONE (22:20)
--- NOTE | 2018-09-21 01:08 | ER ---
Nurse's Notes [facility] Name: Marilee Henderson Age: 48 yrs Sex: Female : 1970 Arrival Date: 09/20/2018 Time: 19:15 Bed 14 Private MD: Diagnosis: Urinary tract infection, site not specified;Diabetes mellitus due to underlying condition with hyperglycemia Presentation: 09/20 19:42 Presenting complaint: Child states: She has a blister on her right ankle that has been jb4 there for a week. She just got back from [place], and is using an antibiotic cream that she got while there, it is getting better but we wanted to get checked to make sure we are using the appropriate cream. She says she is having lower abdominal pain as well. 19:42 Transition of care: patient was not received from another setting of care. Onset of jb4 symptoms was September 13, 2018. Risk Assessment: Do you want to hurt yourself or someone else? Patient reports no desire to harm self or others. Initial Sepsis Screen: Does the patient meet any 2 criteria? No. Patient's initial sepsis screen is negative. Does the patient have a suspected source of infection? Yes: Skin breakdown/wound. Care prior to arrival: None. 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 - Social history:: Smoking status: Patient/guardian denies using tobacco, Patient/guardian denies using alcohol. - Ebola Screening: : No symptoms or risks identified at this time. Screenin:42 Abuse screen: Denies threats or abuse. Nutritional screening: No deficits noted. jb4 Tuberculosis screening: No symptoms or risk factors identified. Fall Risk None identified. Assessment: 19:42 General: Appears in no apparent distress. comfortable, Behavior is calm, cooperative, jb4 appropriate for age. Pain: Complains of pain in groin and suprapubic area Pain does not radiate. Pain currently is 0 out of 10 on a pain scale. Quality of pain is described as burning. Neuro: Level of Consciousness is awake, alert, obeys commands, Oriented to person, place, time, situation. Cardiovascular: Patient's skin is warm and dry. Respiratory: Airway is patent Respiratory effort is even, unlabored, Respiratory pattern is regular, symmetrical. GI: Reports lower abdominal pain. : Reports pain in suprapubic area. EENT: No deficits noted. No signs and/or symptoms were reported regarding the EENT system. Derm: Skin is intact, Skin is pink, warm \T\ dry. Musculoskeletal: Circulation, motion, and sensation intact. Range of motion: intact in all extremities. 21:00 Reassessment: Patient appears in no apparent distress at this time. Patient and/or jb4 family updated on plan of care and expected duration. Pain level reassessed. Patient is alert, oriented x 3, equal unlabored respirations, skin warm/dry/pink. 22:00 Reassessment: Patient appears in no apparent distress at this time. Patient and/or jb4 family updated on plan of care and expected duration. Pain level reassessed. Patient is alert, oriented x 3, equal unlabored respirations, skin warm/dry/pink. 23:00 Reassessment: Patient appears in no apparent distress at this time. Patient and/or jb4 family updated on plan of care and expected duration. Pain level reassessed. Patient is alert, oriented x 3, equal unlabored respirations, skin warm/dry/pink. 09/21 00:00 Reassessment: Patient appears in no apparent distress at this time. Patient and/or jb4 family updated on plan of care and expected duration. Pain level reassessed. Patient is alert, oriented x 3, equal unlabored respirations, skin warm/dry/pink. 01:00 Reassessment: Patient appears in no apparent distress at this time. Patient and/or jb4 family updated on plan of care and expected duration. Pain level reassessed. Patient is alert, oriented x 3, equal unlabored respirations, skin warm/dry/pink. 01:20 Reassessment: Patient appears in no apparent distress at this time. Patient and/or jb4 family updated on plan of care and expected duration. Pain level reassessed. Patient is alert, oriented x 3, equal unlabored respirations, skin warm/dry/pink. Pt son, verbalized understanding of d/c and follow up instructions. pt ambulated out of Ed with family with steady gait. Vital Signs: 09/20 19:42 BP 113 / 66; Pulse 83; Resp 16; Temp 98.1(O); Pulse Ox 100% on R/A; Weight 99.79 kg jb4 (R); Height 5 ft. 6 in. (167.64 cm) (R); Pain 0/10; 20:30 BP 113 / 69; Pulse 76; Resp 18; Pulse Ox 100% on R/A; jb4 22:00 BP 133 / 80; Pulse 78; Resp 16; Pulse Ox 100% on R/A; jb4 23:15 BP 119 / 64; Pulse 74; Resp 16; Pulse Ox 100% on R/A; jb4 09/21 01:00 BP 112 / 68; Pulse 70; Resp 16; Pulse Ox 100% on R/A; jb4 09/20 19:42 Body Mass Index 35.51 (99.79 kg, 167.64 cm) jb4 ED Course: 09/20 19:15 Patient arrived in ED. ag3 19:42 Arm band placed on right wrist. jb4 19:42 Patient has correct armband on for positive identification. Bed in low position. Call jb4 light in reach. Side rails up X 1. Pulse ox on. NIBP on. 19:44 [facility]. cp 19:44 Marvin Salazar MD is Attending Physician. cp 19:53 Kolton Ashley, CATERINA is Primary Nurse. jb4 19:57 Triage completed. jb4 20:10 Urine collected: clean catch specimen, clear. jb4 20:43 Inserted saline lock: 20 gauge in right antecubital area, using aseptic technique. mw2 Blood collected. 21:16 Notified Nurse Practitioner and/or Physician Information Engineer of a critical lab result(s), fc glucose 470. 22:17 XRAY Abdomen 1 View (KUB) In Process Unspecified. EDMS 09/21 01:00 No provider procedures requiring assistance completed. IV discontinued, intact, jb4 bleeding controlled, No redness/swelling at site. Pressure dressing applied. Administered Medications: 09/20 21:16 CANCELLED (Physician Discretion): NovoLIN R 10 units Sub-Q once cp 22:32 Drug: NS 0.9% 1000 ml Route: IV; Rate: 1 bolus; Site: right antecubital; jb4 23:30 Follow up: Response: No adverse reaction; IV Status: Completed infusion; IV Intake: jb4 1000ml 22:32 Drug: Insulin Regular Human 10 units {Co-Signature: [email or web address] (Wesley Wei RN).} Route: jb4 IVP; Site: right antecubital; 09/21 01:00 Follow up: Response: No adverse reaction; Blood sugar is lowered jb4 09/20 22:41 Drug: Rocephin - (cefTRIAXone) 1 grams Route: IVPB; Infused Over: 30 mins; Site: right jb antecubital; 23:11 Follow up: Response: No adverse reaction; IV Status: Completed infusion; IV Intake: [id number] Point of Care Testing: Blood Glucose: 20:25 Blood Glucose: 377 mg/dL; jb4 23:53 Blood Glucose: 346 mg/dL; jb4 09/21 00:40 Blood Glucose: 308 mg/dL; mw2 Ranges: Intake: 09/20 23:11 IV: 50ml; Total: 50ml. jb4 23:30 IV: 1000ml; Total: 1050ml. jb4 Outcome: 09/21 01:06 Discharge ordered by . kb 01:20 Discharged to home ambulatory, with family. jb4 01:20 Condition: stable 01:20 Discharge instructions given to patient, family, Instructed on discharge instructions, follow up and referral plans. medication usage, Demonstrated understanding of instructions, follow-up care, medications, Prescriptions given X 2. 01:37 Patient left the ED. jb4 Signatures: Dispatcher [employer] EDMS Yue Hart, Yary Arellano RN RN Marvin Dang PA PA cp Bryson, James, RN RN jb4 Jeannie Cannon mw2 Yazmin Little ag3 Wesley Wei RN [email or web address]
--- NOTE | 2018-09-21 01:09 | EDPHYS ---
Physician Documentation [facility] Name: Marilee Henderson Age: 48 yrs Sex: Female : 1970 Arrival Date: 09/20/2018 Time: 19:15 Bed 14 Private MD: SHANTELL Physician Marvin Salazar HPI: 09/20 20:04 This 48 yrs old Female presents to ER via Ambulatory with complaints of BUMP cp ON RT LEG. 20:04 The patient presents with blister. The complaints affect the medial aspect right ankle. cp Onset: The symptoms/episode began/occurred 1 week(s) ago. Associated signs and symptoms: Pertinent negatives: warmth, drainage. Patient reports she has been using antibacterial ointment from [place] and is here with son who would like wound to be checked. 20:05 Patient also c/o lower abdomen pain. 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 - Social history:: Smoking status: Patient/guardian denies using tobacco, Patient/guardian denies using alcohol. - Ebola Screening: : No symptoms or risks identified at this time. ROS: 20:10 Constitutional: Negative for body aches, chills, fever, poor PO intake. cp 20:10 Eyes: Negative for injury, pain, redness, and discharge. cp 20:10 ENT: Negative for drainage from ear(s), ear pain, sore throat, difficulty swallowing, difficulty handling secretions. 20:10 Cardiovascular: Negative for chest pain. 20:10 Respiratory: Negative for cough, shortness of breath, wheezing. 20:10 Abdomen/GI: Positive for abdominal pain, of the right lower quadrant and left lower quadrant, Negative for vomiting, diarrhea, constipation, black/tarry stool, rectal bleeding. 20:10 Back: Negative for pain at rest, pain with movement, radiated pain. 20:10 : Negative for urinary symptoms, vaginal bleeding, vaginal discharge. 20:10 Skin: Positive for blister medial aspect right ankle. 20:10 Neuro: Negative for altered mental status, headache, weakness. 20:10 All other systems are negative. Exam: 20:20 Constitutional: The patient appears in no acute distress, alert, awake, non-toxic, well cp developed, well nourished. 20:20 Head/Face: Normocephalic, atraumatic. cp 20:20 Head/face: Exam is negative for 20:20 Eyes: Periorbital structures: appear normal, Conjunctiva: normal, no exudate, no cp injection, Sclera: no appreciated abnormality, Lids and lashes: appear normal, bilaterally. 20:20 ENT: External ear(s): are unremarkable, Nose: is normal, Mouth: Lips: moist, Oral cp mucosa: pink and intact, moist, Posterior pharynx: is normal, airway is patent, no erythema, no exudate. 20:20 Neck: ROM/movement: is normal, is supple, without pain, no range of motions limitations, no nuchal rigidity. 20:20 Chest/axilla: Inspection: normal, Palpation: is normal, no crepitus, no tenderness. 20:20 Cardiovascular: Rate: normal, Rhythm: regular. 20:20 Respiratory: the patient does not display signs of respiratory distress, Respirations: normal, no use of accessory muscles, no retractions, no splinting, no tachypnea, labored breathing, is not present, Breath sounds: are clear throughout, no decreased breath sounds, no stridor, no wheezing. 20:20 Abdomen/GI: Inspection: abdomen appears normal, Bowel sounds: active, all quadrants, Palpation: soft, in all quadrants, mild abdominal tenderness, in the right lower quadrant and left lower quadrant, rebound tenderness, is not appreciated, involuntary guarding, is not appreciated. 20:20 Back: pain, that is mild, of the low back, ROM is normal. 20:20 Skin: cellulitis, is not appreciated. Vital Signs: 19:42 BP 113 / 66; Pulse 83; Resp 16; Temp 98.1(O); Pulse Ox 100% on R/A; Weight 99.79 kg jb4 (R); Height 5 ft. 6 in. (167.64 cm) (R); Pain 0/10; 20:30 BP 113 / 69; Pulse 76; Resp 18; Pulse Ox 100% on R/A; 4 22:00 BP 133 / 80; Pulse 78; Resp 16; Pulse Ox 100% on R/A; [facility] 23:15 BP 119 / 64; Pulse 74; Resp 16; Pulse Ox 100% on R/A; [facility] 09/21 01:00 BP 112 / 68; Pulse 70; Resp 16; Pulse Ox 100% on R/A; [facility] 09/20 19:42 Body Mass Index 35.51 (99.79 kg, 167.64 cm) [facility] MDM: 09/20 19:48 Patient medically screened. [facility] 21:00 Differential diagnosis: cellulitis, abscess, UTI. 23:30 Data reviewed: vital signs, nurses notes, lab test result(s). 09/20 20:01 Order name: Urine Microscopic Only; Complete Time: 21:11 09/20 21:11 Interpretation: Normal except: UWBC >50; UBACT 20-50; YEAST PRESENT; BUD PRESENT. 09/20 20:31 Order name: Basic Metabolic Panel; Complete Time: 21:34 09/20 21:35 Interpretation: Normal except: NA 135; GLUC 470; GFR 85. 09/20 20:31 Order name: CBC with Diff; Complete Time: 21:11 09/20 20:31 Order name: Creatinine for Radiology; Complete Time: 21:34 09/20 20:31 Order name: Hepatic Function; Complete Time: 21:34 09/20 21:36 Interpretation: Normal except: AST 12; GLOB 3.6; A/G 1.0. / 20:31 Order name: Lipase; Complete Time: 21:34 09/20 20:31 Order name: Urine Dipstick--Ancillary (enter results); Complete Time: 21:11 cm6 09/20 22:08 Interpretation: Normal except: UGLUC 2+; UBLD 1+; UESTR TRACE. 09/20 20:43 Order name: Urine Culture EDWI 09/20 21:49 Order name: XRAY Abdomen 1 View (KUB) 09/21 00:38 Order name: Glucose, Ancillary Testing EDWI 09/21 00:38 Order name: Glucose, Ancillary Testing EDWI 09/21 00:40 Order name: Glucose, Ancillary Testing EDMS 09/20 20:01 Order name: Urine Dipstick-Ancillary (obtain specimen); Complete Time: 20:20 cp 09/20 20:31 Order name: IV Saline Lock; Complete Time: 20:46 cp 09/20 20:31 Order name: Labs collected and sent; Complete Time: 20:46 cp Administered Medications: 21:16 CANCELLED (Physician Discretion): NovoLIN R 10 units Sub-Q once cp 22:32 Drug: NS 0.9% 1000 ml Route: IV; Rate: 1 bolus; Site: right antecubital; [facility] 23:30 Follow up: Response: No adverse reaction; IV Status: Completed infusion; IV Intake: jb4 1000ml 22:32 Drug: Insulin Regular Human 10 units {Co-Signature: [email or web address] (Wesley Wei RN).} Route: jb4 IVP; Site: right antecubital; 09/21 01:00 Follow up: Response: No adverse reaction; Blood sugar is lowered [facility] 09/20 22:41 Drug: Rocephin - (cefTRIAXone) 1 grams Route: IVPB; Infused Over: 30 mins; Site: right 4 antecubital; 23:11 Follow up: Response: No adverse reaction; IV Status: Completed infusion; IV Intake: 13dilh4 Point of Care Testing: Blood Glucose: 20:25 Blood Glucose: 377 mg/dL; jb4 23:53 Blood Glucose: 346 mg/dL; [facility] 09/21 00:40 Blood Glucose: 308 mg/dL; mw2 Ranges: Critical Glucose Levels:Adult <50 mg/dl or >400 mg/dl <40 mg/dl or >180 mg/dl Disposition: 09/21/18 01:06 Discharged to Home. Impression: Urinary tract infection, site not specified, Diabetes mellitus due to underlying condition with hyperglycemia. - Condition is Stable. - Discharge Instructions: Urinary Tract Infection, Adult, Blood Glucose Monitoring, Adult, Diabetes Mellitus and Food. - Prescriptions for Diflucan 150 mg Oral Tablet - take 1 tablet by ORAL route one time for 1 day; 1 tablet. Bactrim DS 800- 160 mg Oral Tablet - take 1 tablet by ORAL route every 12 hours for 7 days; 14 tablet. - Medication Reconciliation Form, Thank You Letter, Antibiotic Education, Prescription Opioid Use form. - Follow up: Private Physician; When: 2 - 3 days; Reason: Recheck today's complaints. - Problem is new. - Symptoms have improved. Signatures: Dispatcher [employer] EDMS Yue Hart, CONSULTING TECHNICAL DIRECTOR-C CONSULTING TECHNICAL DIRECTOR-Marvin Tobar MD MD cha Page, Corey, PA Kolton Whalen cp, RN RN jb4 Wesley Wei RN [email or web address] Corrections: (The following items were deleted from the chart) 09/20 21:16 21:14 NovoLIN R 10 units Sub-Q once ordered. cp 09/21 01:37 01:06 09/21/2018 01:06 Discharged to Home. Impression: Urinary tract infection, site jb4 not specified; Diabetes mellitus due to underlying condition with hyperglycemia. Condition is Stable. Discharge Instructions: Urinary Tract Infection, Adult, Blood Glucose Monitoring, Adult, Diabetes Mellitus and Food. Prescriptions for Diflucan 150 mg Oral Tablet - take 1 tablet by ORAL route one time for 1 day; 1 tablet, Bactrim DS 800-160 mg Oral Tablet - take 1 tablet by ORAL route every 12 hours for 7 days; 14 tablet. and Forms are Medication Reconciliation Form, Thank You Letter, Antibiotic Education, Prescription Opioid Use. Follow up: Private Physician; When: 2 - 3 days; Reason: Recheck today's complaints. Problem is new. Symptoms have improved. kb
[2018-09-21 03:53] VITALS: TEMP 98.1; O2SAT 100
[2018-09-21 04:04] VITALS: BP 119/64
--- NOTE | 2018-09-21 13:06 | RAD REPORT ---
EXAM DESCRIPTION: RAD - Abdomen 1 View (KUB) - 09/20/2018 10:17 pm CLINICAL HISTORY: Abdomen pain. FINDINGS: The bowel gas pattern is unremarkable. The abdomen appears somewhat lucent. Most likely this is not significant. Subtle free air can also re sult in this appearance. If the patient has clinical symptoms to suggest an acute abdomen then an upr ight abdominal plain film series recommended Dr. Cardona of the emergency room notified 12:55 p.m. September 21, 2018
== END 2018-09-21 01:37 | disposition home or self-care (01) ==
LOC: ER 19:11
DX: N39.0 Urinary tract infection, site not specified (principal); E11.65 Type 2 diabetes mellitus with hyperglycemia; F41.9 Anxiety disorder, unspecified
CPT/HCPCS: 36415; 74018; 80048; 80076; 81003; 81015; 82962; 83690; 85025; 87086; 87088; 96365; 96375; 99284; J7030

== ENCOUNTER 2020-03-09 11:15 | Emergency (ER) | payer SELFPAY ==
--- OUTSIDE RECORDS SUMMARY | 2020-03-09 11:20 | XMS REPORT | Continuity of Care Document ---
:1970 Author Organization [facility] t Address [address] [place] [address] [address]. [address] [place] [address] Care Team Providers Name Role Phone Opal DIGGS, T Attending Clinician Unavailable Pcp, Does Not Have A Attending Clinician Lab, Fam Pob I Attending Clinician Unavailable Problems This patient has no known problems. Allergies, Adverse Reactions, Alerts This patient has no known allergies or adverse reactions. Medications This patient has no known medications. Procedures This patient has no known procedures. Encounters Start End Encounter Admission Attending Care Care Encounter Source Date/Time Date/Time Type Type Clinicians Facility Department ID 2019-10-22 2019-10-22 Letter SAMANTHA Joseph [id number] 00:00:00 00:00:00 (Out) Siomara ESC[facility]ILL[facility] [id number] [facility] [id number] 2019-10-22 2019-10-22 Telephone SAMANTHA [place] [id number] 00:00:00 00:00:00 Patient ANDI [id number] Does Not HOSPITAL [id number] Have A [id number] 2019-10-20 2019-10-20 Laboratory Lab, [facility] [id number] 10:11:40 10:31:40 Only Fam Pob I Health [id number] [place] [id number] Professio [id number] nal [address] One Results This patient has no known results.
--- NOTE | 2020-03-09 12:05 | ER ---
Nurse's Notes [facility] Name: Marilee Henderson Age: 49 yrs Sex: Female : 1970 Arrival Date: 03/09/2020 Time: 11:17 Bed 5 Private MD: Diagnosis: Rash and other nonspecific skin eruption Presentation: 03/09 11:38 Chief complaint: Patient states: Rash on the L upper back x 2 weeks. Coronavirus ca1 screen: Client denies travel out of the [place] in the last 14 days. At this time, the client does not indicate any symptoms associated with coronavirus-19. Ebola Screen: Patient negative for fever greater than or equal to 101.5 degrees Fahrenheit, and additional compatible Ebola Virus Disease symptoms Patient denies exposure to infectious person. Patient denies travel to an Ebola-affected area in the 21 days before illness onset. No symptoms or risks identified at this time. Initial Sepsis Screen: Does the patient meet any 2 criteria? No. Patient's initial sepsis screen is negative. Does the patient have a suspected source of infection? No. Patient's initial sepsis screen is negative. Risk Assessment: Do you want to hurt yourself or someone else? Patient reports no desire to harm self or others. Onset of symptoms was March 09, 2020. 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 - Social history:: Smoking status: Patient denies any tobacco usage or history of. Screenin:59 Abuse screen: Denies threats or abuse. Denies injuries from another. Nutritional jl7 screening: No deficits noted. Tuberculosis screening: No symptoms or risk factors identified. Fall Risk None identified. Assessment: 11:59 General: Appears in no apparent distress. uncomfortable. Pain: Complains of pain in jl7 back, right arm and left arm Pain currently is 9 out of 10 on a pain scale. Neuro: Level of Consciousness is awake, alert, obeys commands, Oriented to person, place, time, situation. Cardiovascular: Patient's skin is warm and dry. Respiratory: Airway is patent Respiratory effort is even, unlabored, Respiratory pattern is regular, symmetrical. Derm: Skin is pink, warm \T\ dry. Rash noted that is itchy. Vital Signs: 11:38 BP 109 / 70; Pulse 94; Resp 18 S; Temp 97.1(TE); Pulse Ox 100% on R/A; Weight 63.5 kg ca1 (R); Height 5 ft. 0 in. (152.40 cm); Pain 9/10; 11:38 Body Mass Index 27.34 (63.50 kg, 152.40 cm) ca1 ED Course: 11:17 Patient arrived in ED. ag5 11:40 Triage completed. ca1 11:41 Luis Hadley PA is PHCP. m 11:41 Arm band placed on right wrist. ca1 11:42 Marvin Salazar MD is Attending Physician. quita 11:56 Sola Tarango, RN is Primary Nurse. jl7 11:59 Patient has correct armband on for positive identification. Placed in gown. Bed in low jl7 position. Call light in reach. Side rails up X 1. 12:10 No provider procedures requiring assistance completed. Patient did not have IV access aa5 during this emergency room visit. Administered Medications: No medications were administered Outcome: 12:05 Discharge ordered by . quita 12:10 Discharged to home ambulatory. aa5 12:10 Condition: stable 12:10 Discharge instructions given to patient, Instructed on discharge instructions, follow up and referral plans. medication usage, Demonstrated understanding of instructions, follow-up care, medications, Prescriptions given X 2. 12:13 Patient left the ED. aa5 Signatures: Luis Hadley PA PA jmm Calderon, Audri, RN RN aa5 Sola Tarango RN RN jl7 Muriel Samuels RN RN ca1 Yasmine Sinclair ag5
--- NOTE | 2020-03-09 12:05 | EDPHYS ---
Physician Documentation [facility] Name: Marilee Henderson Age: 49 yrs Sex: Female : 1970 Arrival Date: 03/09/2020 Time: 11:17 Bed 5 Private MD: Marvin Craft HPI: 03/09 12:01 This 49 yrs old Female presents to ER via Ambulatory with complaints of Rash. jmm 12:01 The patient's rash thought to be caused by an unknown cause. Onset: The jmm symptoms/episode began/occurred gradually, 2 month(s) ago. Associated signs and symptoms: Pertinent positives: itching, Pertinent negatives: fever, swelling of lips, swelling of throat, swelling of tongue, vomiting, wheezing. Patient complains of pruretic rash for the past 2 months. Denies fever. . 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 - Social history:: Smoking status: Patient denies any tobacco usage or history of. ROS: 12:01 Constitutional: Negative for fever, chills, and weight loss, Cardiovascular: Negative jmm for chest pain, palpitations, and edema, Respiratory: Negative for shortness of breath, cough, wheezing, and pleuritic chest pain. 12:01 Skin: Positive for rash. 12:01 All other systems are negative. Exam: 12:01 Constitutional: This is a well developed, well nourished patient who is awake, alert, jmm and in no acute distress. Head/Face: atraumatic. Eyes: EOMI, no conjunctival erythema appreciated ENT: Moist Mucus Membranes Neck: Trachea midline, Supple Chest/axilla: Normal chest wall appearance and motion. Cardiovascular: Regular rate and rhythm. No edema appreciated Respiratory: Normal respirations, no respiratory distress appreciated Abdomen/GI: Non distended, soft Back: Normal ROM 12:01 Skin: impetigenous lesions noted to the forearms and upper back. No purulent drainage or surrounding induration. Vital Signs: 11:38 BP 109 / 70; Pulse 94; Resp 18 S; Temp 97.1(TE); Pulse Ox 100% on R/A; Weight 63.5 kg ca1 (R); Height 5 ft. 0 in. (152.40 cm); Pain 9/10; 11:38 Body Mass Index 27.34 (63.50 kg, 152.40 cm) ca1 MDM: 11:42 Patient medically screened. [facility] 12:01 Data reviewed: vital signs, nurses notes. Counseling: I had a detailed discussion with quita the patient and/or guardian regarding: the historical points, exam findings, and any diagnostic results supporting the discharge/admit diagnosis, the need for outpatient follow up, to return to the emergency department if symptoms worsen or persist or if there are any questions or concerns that arise at home. ED course: Patient is alert and non toxic in appearance in the ED. I do not suspect sepsis. PE findings consistent with impetigo. Patient is advise to follow up with pcp and otherwise given strict return precautions. Patient understood and agrees with the plan of care. . Administered Medications: No medications were administered Disposition: 03/10 06:25 Co-signature as Attending Physician, Marvin Salazar MD I agree with the assessment and [facility] plan of care. Disposition: 03/09/20 12:05 Discharged to Home. Impression: Rash and other nonspecific skin eruption. - Condition is Stable. - Discharge Instructions: Impetigo, Adult. - Prescriptions for Augmentin 875- 125 mg Oral Tablet - take 1 tablet by ORAL route every 12 hours for 10 days; 20 tablet. Bactroban 2 % Topical Ointment - Apply to affected area 1 application by TOPICAL route every 12 hours; 30 gram. - Medication Reconciliation Form, Thank You Letter, Antibiotic Education, Prescription Opioid Use form. - Follow up: Private Physician; When: 2 - 3 days; Reason: Recheck today's complaints, Continuance of care, Re-evaluation by your physician. Signatures: Marvin Salazar MD MD cha Mickail, Joel, PA PA jmm Calderon, Audri, RN RN aa5 Muriel Samuels RN RN ca1 Corrections: (The following items were deleted from the chart) 03/09 12:13 12:05 03/09/2020 12:05 Discharged to Home. Impression: Rash and other nonspecific skin aa5 eruption. Condition is Stable. Forms are Medication Reconciliation Form, Thank You Letter, Antibiotic Education, Prescription Opioid Use. Follow up: Private Physician; When: 2 - 3 days; Reason: Recheck today's complaints, Continuance of care, Re-evaluation by your physician. quita
[2020-03-09 12:18] VITALS: BP 109/70; TEMP 97.1; O2SAT 100
== END 2020-03-09 12:13 | disposition home or self-care (01) ==
LOC: ER 11:15
DX: R21 Rash and other nonspecific skin eruption (principal)
CPT/HCPCS: 99282

== ENCOUNTER 2020-11-09 08:01 | Emergency (ER) | payer SELFPAY ==
--- NOTE | 2020-11-09 08:15 | ER ---
Nurse's Notes [facility] Name: Marilee Henderson Age: 50 yrs Sex: Female : 1970 Arrival Date: 11/09/2020 Time: 08:02 Bed Waiting Private MD: Foreign Gutierrez H Diagnosis: Other acute conjunctivitis;Ocular pain, left eye Presentation: 11/09 08:07 Chief complaint: Patient states: L eye redness, irritation for 2 days. No known injury. ll1 No fever. Coronavirus screen: Vaccine status: Patient reports being unvaccinated. Client denies travel out of the [place] in the last 14 days. At this time, the client does not indicate any symptoms associated with coronavirus-19. Ebola Screen: Patient denies travel to an Ebola-affected area in the 21 days before illness onset. Mechanism of Injury: No Mechanism of Injury. The patient reports a positive loss of vision. Initial Sepsis Screen: Does the patient meet any 2 criteria? HR > 90 bpm. No. Patient's initial sepsis screen is negative. Does the patient have a suspected source of infection? Yes: Other: eye pain. Risk Assessment: Do you want to hurt yourself or someone else? Patient reports no desire to harm self or others. Onset of symptoms was November 08, 2020. 08:07 Method Of Arrival: Ambulatory ll1 08:07 Acuity: KEVIN 4 ll1 Triage Assessment: 08:09 General: Appears in no apparent distress. Behavior is calm, cooperative, appropriate ll1 for age. Pain: Complains of pain in L eye Pain currently is 10 out of 10 on a pain scale. EENT: Eyes are tearing on outer aspect of conjuctiva of left eye, iris of left eye and inner aspect of conjunctiva of left eye Sclera/Cornea are reddened in outer aspect of conjuctiva of left eye and inner aspect of conjunctiva of left eye. Neuro: No deficits noted. Cardiovascular: No deficits noted. Respiratory: No deficits noted. 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 - Social history:: Smoking status: Patient denies any tobacco usage or history of. - Family history:: not pertinent. - Hospitalizations: : No recent hospitalization is reported. Screenin:09 Abuse screen: Denies threats or abuse. Nutritional screening: No deficits noted. ll1 Tuberculosis screening: No symptoms or risk factors identified. 08:10 Fall Risk None identified. ll1 Vital Signs: 08:07 BP 146 / 95; Pulse 98; Resp 16; Temp 97.0; Pulse Ox 96% ; ll1 Visual Acuity: 08:22 ; none needed ll1 ED Course: 08:02 Patient arrived in ED. am2 08:02 Foreign Gutierrez DO is Private Physician. am2 08:06 Gokul Cardona MD is Attending Physician. rn 08:08 Triage completed. ll1 08:09 Arm band placed on Patient placed in an exam room, on a stretcher. ll1 08:09 Patient has correct armband on for positive identification. Bed in low position. Call ll1 light in reach. Side rails up X 1. Cardiac monitoring not applicable on this patient. 08:10 No provider procedures requiring assistance completed. Patient did not have IV access ll1 during this emergency room visit. 08:14 Regine Wolf MD is Referral Physician. rn 08:18 Edilson Cid RN is Primary Nurse. ll1 Administered Medications: 08:15 Drug: Tetracaine Drops 0.5 % 1 drops Route: Ophthalmic; Site: both eyes; ll1 08:23 Follow up: Response: No adverse reaction ll1 Outcome: 08:14 Discharge ordered by . rn 08:18 Discharged to home ambulatory. ll1 08:18 Condition: stable 08:18 Discharge instructions given to patient, Instructed on discharge instructions, follow up and referral plans. medication usage, Demonstrated understanding of instructions, follow-up care, medications, Prescriptions given X 1. 08:22 Patient left the ED. ll1 Signatures: Gokul Cardona MD MD rn Moreno, Amanda [facility] Edilson Cid, CATERINA RN 1
--- NOTE | 2020-11-09 08:15 | EDPHYS ---
Physician Documentation [facility] Name: Marilee Henderson Age: 50 yrs Sex: Female : 1970 Arrival Date: 11/09/2020 Time: 08:02 Bed Waiting Private MD: Foreign Gutierrez H ED Physician Gokul Cardona HPI: 11/09 08:10 This 50 yrs old Female presents to ER via Ambulatory with complaints of Eye rn Pain - left. 08:10 The patient is experiencing pain, redness, tearing. The patient sustained None. to the rn left eye, caused by an unknown mechanism. Onset: The symptoms/episode began/occurred yesterday. Duration: the symptoms are continuous. Aggravated by blinking, rubbing, Alleviated by nothing. Associated signs and symptoms: Pertinent negatives: chills, dizziness, fever, headache, runny nose. Patient does not utilize any form of vision correction. Severity of symptoms: At their worst the symptoms were mild in the emergency department the symptoms are unchanged. The patient has experienced a previous episode. The patient has not recently seen a physician. Patient reports left eye irritation/redness/tearing. Denies any sort of injury. Does not feel like got anything in the eye. Does not wear contacts. Has happened once before and got better with drops. Now symptoms starting to spread to right eye. No vision changes.. 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 - Social history:: Smoking status: Patient denies any tobacco usage or history of. - Family history:: not pertinent. - Hospitalizations: : No recent hospitalization is reported. ROS: 08:10 Constitutional: Negative for fever, chills, and weight loss, Eyes: Negative for injury, rn positive for pain redness and clear discharge ENT: Negative for injury, pain, and discharge, Neck: Negative for injury, pain, and swelling, Cardiovascular: Negative for chest pain, palpitations, and edema, Respiratory: Negative for shortness of breath, cough, wheezing, and pleuritic chest pain, Neuro: Negative for headache, weakness, numbness, tingling, and seizure. Exam: 08:10 Constitutional: This is a well developed, well nourished patient who is awake, alert, rn and in no acute distress. Head/Face: Normocephalic, atraumatic. Eyes: Pupils equal round and reactive to light, extra-ocular motions intact. No pain with light. No hyphema. No hypopyon. No evidence of corneal abrasion or ulceration. Lids everted and no foreign bodies found. Mild conjunctival injection. Eye soft to palpation Vital Signs: 08:07 BP 146 / 95; Pulse 98; Resp 16; Temp 97.0; Pulse Ox 96% ; ll1 Visual Acuity: 08:22 ; none needed ll1 MDM: 08:06 Patient medically screened. rn 08:10 Differential diagnosis: Corneal abrasion of Foreign body in Acute iritis of Data rn reviewed: vital signs, nurses notes, and as a result, I will discharge patient. 08:10 Counseling: I had a detailed discussion with the patient and/or guardian regarding: the rn historical points, exam findings, and any diagnostic results supporting the discharge/admit diagnosis, the need for outpatient follow up, to return to the emergency department if symptoms worsen or persist or if there are any questions or concerns that arise at home. Special discussion: I discussed with the patient/guardian in detail that at this point there is no indication for admission to the hospital. It is understood, however, that if the symptoms persist or worsen the patient needs to return immediately for re-evaluation. Based on the history and exam findings, there is no indication for further emergent testing or inpatient evaluation. I discussed with the patient/guardian the need to see the opthamologist for further evaluation of the symptoms. 08:21 ED course: Tonopen used to measure eye pressure, 21 left, 20 right. . rn Administered Medications: 08:15 Drug: Tetracaine Drops 0.5 % 1 drops Route: Ophthalmic; Site: both eyes; ll1 08:23 Follow up: Response: No adverse reaction ll1 Disposition Summary: 11/09/20 08:14 Discharge Ordered Location: Home rn Problem: new rn Symptoms: are unchanged rn Condition: Stable rn Diagnosis - Other acute conjunctivitis rn - Ocular pain, left eye rn Followup: rn - With: Regine Wolf MD - When: As needed - Reason: Recheck today's complaints, Re-evaluation by your physician Discharge Instructions: - Discharge Summary Sheet rn - Bacterial Conjunctivitis, Adult rn - Viral Conjunctivitis, Adult rn Forms: - Medication Reconciliation Form rn - Thank You Letter rn - 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 Head/Face: Normocephalic, atraumatic. Eyes: Pupils equal round and reactive to light, extra-ocular motions intact. No pain with light. No hyphema. No hypopyon. No evidence of corneal abrasion or ulceration. Lids everted and no foreign bodies found. Mild conjunctival injection. rn
[2020-11-09] MEDS ORDERED: TETRACAINE HCL 0.5% 4ML OPTH ONE (08:41)
[2020-11-09 08:42] VITALS: BP 146/95; TEMP 97; O2SAT 96
== END 2020-11-09 08:22 | disposition home or self-care (01) ==
LOC: ER 08:01
DX: H10.32 Unspecified acute conjunctivitis, left eye (principal)
CPT/HCPCS: 99283

== ENCOUNTER 2021-06-27 16:07 | Emergency (ER) | payer SELFPAY ==
--- OUTSIDE RECORDS SUMMARY | 2021-06-27 16:10 | XMS REPORT | Continuity of Care Document ---
:1970 Author Organization [facility] t Address [address] [place] [address] Care Team Providers Name Role Phone Opal DIGGS, T Attending Clinician Unavailable Pcp, Does Not Have A Attending Clinician Lab, Fam Pob I Attending Clinician Unavailable ANENE Attending Clinician Unavailable Problems This patient has no known problems. Allergies, Adverse Reactions, Alerts Allergy Allergy Status Severity Reaction(s) Onset Inactive Treating Comm ents Source Name Type Date Date Clinician NO KNOWN Drug Active NPI:[id number] ALLERGIE Class [id number] S Medications This patient has no known medications. Procedures This patient has no known procedures. Encounters Start End Encounter Admission Attending Care Care Encounter Source Date/Time Date/Time Type Type Clinicians Facility Department ID 2019-10-22 2019-10-22 Letter SAMANTHA Joseph [id number] 00:00:00 00:00:00 (Out) Siomara Earl ANDI [id number] [facility] [id number] 2019-10-22 2019-10-22 Telephone PcpSAMANTHA [id number] 00:00:00 00:00:00 Patient ANDI [id number] Does Not HOSPITAL [id number] Have A [id number] 2019-10-20 2019-10-20 Laboratory Lab, [facility] [id number] 10:11:40 10:31:40 Only Fam Pob I Health [id number] [place] [id number] Professio [phone] nal 0[address] 2019-10-20 2019-10-20 Outpatient R AMANDA [facility] [id number] NPI:[id number] 10:20:00 10:20:00 VASYL [id number] 1 Results This patient has no known results.
--- NOTE | 2021-06-27 17:04 | RAD REPORT ---
EXAM DESCRIPTION: CT - Head Brain Wo Cont - 06/27/2021 4:58 pm CLINICAL HISTORY: Headache, new or worsening Headache, drowsiness COMPARISON: Head Brain Wo Cont dated 05/05/2017; Head Brain Wo Cont dated 10/15/2016 TECHNIQUE: All CT scans are performed using dose optimization technique as appropriate and may inclu de automated exposure control or mA/KV adjustment according to patient size. FINDINGS: No intracranial hemorrhage, hydrocephalus or extra-axial fluid collection.No areas of brai n edema or evidence of midline shift. The paranasal sinuses and mastoids are clear. The calvarium is intact. IMPRESSION: No acute intracranial abnormality.
[2021-06-27] MEDS ORDERED: ACYCLOVIR 400 MG TABLET ONE (17:14)
[2021-06-27] MEDS ORDERED: KETOROLAC 30 MG/ML INJ ONE (17:14)
[2021-06-27] MEDS ORDERED: HYDROCODONE/APAP 7.5/325 MG TAB ONE (17:14)
[2021-06-27 17:18] LABS: Hematocrit 35.8 % (36.0-45.0); MPV 8.6 fL (7.6-11.3); RBC Red Blood Cell Count 4.19 M/uL (3.86-4.86)
[2021-06-27 17:33] LABS: Magnesium 1.9 mg/dL (1.8-2.4); Potassium 3.9 mmol/L (3.5-5.1)
[2021-06-27 17:42] LABS: Absolute Lymphocytes (CBC) 0.7 K/uL (0.7-4.9); Lymphocytes % 14.9 % (15.3-44.8)
--- NOTE | 2021-06-27 17:44 | ER ---
Nurse's Notes [facility] Name: Marilee Henderson Age: 50 yrs Sex: Female : 1970 Arrival Date: 06/27/2021 Time: 16:08 Bed 30 Private MD: Foreign Gutierrez H Diagnosis: Zoster without complications;Paresthesia of skin Presentation: 06/27 16:39 Chief complaint: Patient states: Right side head pain, right eye swelling, DANICA hand ld1 numbness. Pt denies fall or injury. Symptoms X 2 days. Coronavirus screen: At this time, the client does not indicate any symptoms associated with coronavirus-19. Ebola Screen: No symptoms or risks identified at this time. Initial Sepsis Screen: Does the patient meet any 2 criteria? No. Patient's initial sepsis screen is negative. Does the patient have a suspected source of infection? No. Patient's initial sepsis screen is negative. Risk Assessment: Do you want to hurt yourself or someone else? Patient reports no desire to harm self or others. Onset of symptoms was June 27, 2021 at 16:40. 16:39 Method Of Arrival: Ambulatory ld1 16:39 Acuity: KEVIN 3 ld1 Triage Assessment: 16:40 Headache History: Denies prior headaches. General: Appears in no apparent distress. ld1 comfortable. General: Behavior is calm, cooperative, appropriate for age. Pain: Complains of pain in right eye, right cheek, right hand and left hand Pain does not radiate. Pain currently is 10 out of 10 on a pain scale. Quality of pain is described as throbbing, Pain began suddenly, Also complains of no other associated symptoms. EENT: No signs and/or symptoms were reported regarding the EENT system. Neuro: Level of Consciousness is awake, alert, obeys commands, Oriented to person, place, time, situation. Cardiovascular: Capillary refill < 3 seconds Patient's skin is warm and dry. Rhythm is regular. Respiratory: Airway is patent Respiratory effort is even, unlabored. GI: Abdomen is flat, non-distended. : No signs and/or symptoms were reported regarding the genitourinary system. Derm: No signs and/or symptoms reported regarding the dermatologic system. Musculoskeletal: No signs and/or symptoms reported regarding the musculoskeletal system. 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 - Social history:: Smoking status: Patient denies any tobacco usage or history of. Patient/guardian denies using alcohol. Screenin:42 Abuse screen: Denies threats or abuse. Denies injuries from another. Nutritional ld1 screening: No deficits noted. Tuberculosis screening: No symptoms or risk factors identified. Fall Risk None identified. Assessment: 16:42 Reassessment: See triage assessment. ld1 Vital Signs: 16:39 BP 128 / 54; Pulse 95; Resp 18; Temp 98.5(O); Pulse Ox 100% on R/A; Weight 65.77 kg; ld1 Height 5 ft. 1 in. (154.94 cm); Pain 10/10; 16:39 Body Mass Index 27.40 (65.77 kg, 154.94 cm) ld1 ED Course: 16:08 Patient arrived in ED. am2 16:08 Foreign Gutierrez DO is Private Physician. am2 16:34 [facility] jr8 16:35 Marvin Salazar MD is Attending Physician. jr8 16:35 Lacey Valdez, CATERINA is Primary Nurse. ld1 16:40 Triage completed. ld1 16:40 Arm band placed on right wrist. ld1 16:42 Patient has correct armband on for positive identification. Placed in gown. Bed in low ld1 position. Call light in reach. Side rails up X2. sewer inspector on. Pulse ox on. NIBP on. Door closed. Noise minimized. Warm blanket given. 16:42 No provider procedures requiring assistance completed. ld1 16:59 CT Head Brain wo Cont In Process Unspecified. EDMS 17:43 Foreign Gutierrez DO is Referral Physician. jr8 Administered Medications: 17:13 Drug: Acyclovir 800 mg Route: PO; ld1 17:13 Drug: Ketorolac 15 mg Route: IVP; Site: right antecubital; ld1 17:13 Drug: [place] (HYDROcodone-acetaminophen) (7.5 mg-325 mg) 1 tabs Route: PO; ld1 Outcome: 17:44 Discharge ordered by . elder 18:09 Patient left the ED. ld1 Signatures: Dispatcher [employer] EDMS Tyrell Zhu PA PA jr8 Patricia Patel Lauren RN RN ld1
--- NOTE | 2021-06-27 17:44 | EDPHYS ---
Physician Documentation [facility] Name: Marilee Henderson Age: 50 yrs Sex: Female : 1970 Arrival Date: 06/27/2021 Time: 16:08 Bed 30 Private MD: Foreign Gutierrez H ED Physician Marvin Salazar HPI: 06/27 17:37 This 50 yrs old Female presents to ER via Ambulatory with complaints of jr8 Headache, Numbness Of Hand, Laceration To Hand - index finger. 17:37 Severity of symptoms: At its worst the pain was moderate, in the emergency department jr8 the pain is unchanged. Headache History: Denies prior headaches. The symptoms are alleviated by nothing. the symptoms are aggravated by nothing. The patient has not experienced similar symptoms in the past. The patient has not recently seen a physician. Patient stated that she uses her hands a lot and has a small laceration to the index finger of the right hand. Also over the past couple days has had headache on the right side and numbness to both hands. Denies any other symptoms at this time.. 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 - Social history:: Smoking status: Patient denies any tobacco usage or history of. Patient/guardian denies using alcohol. ROS: 17:37 Eyes: Negative for injury, pain, redness, and discharge, ENT: Negative for injury, jr8 pain, and discharge, Neck: Negative for injury, pain, and swelling, Cardiovascular: Negative for chest pain, palpitations, and edema, Respiratory: Negative for shortness of breath, cough, wheezing, and pleuritic chest pain, Abdomen/GI: Negative for abdominal pain, nausea, vomiting, diarrhea, and constipation, Back: Negative for injury and pain, MS/Extremity: Negative for injury and deformity. 17:37 Skin: Positive for laceration(s), of the right hand. 17:37 Neuro: Positive for headache. Exam: 17:37 Eyes: Pupils equal round and reactive to light, extra-ocular motions intact. Lids and jr8 lashes normal. Conjunctiva and sclera are non-icteric and not injected. Cornea within normal limits. Periorbital areas with no swelling, redness, or edema. ENT: Nares patent. No nasal discharge, no septal abnormalities noted. Tympanic membranes are normal and external auditory canals are clear. Oropharynx with no redness, swelling, or masses, exudates, or evidence of obstruction, uvula midline. Mucous membranes moist. Neck: Trachea midline, no thyromegaly or masses palpated, and no cervical lymphadenopathy. Supple, full range of motion without nuchal rigidity, or vertebral point tenderness. No Meningismus. Cardiovascular: Regular rate and rhythm with a normal S1 and S2. No gallops, murmurs, or rubs. Normal PMI, no JVD. No pulse deficits. Respiratory: Lungs have equal breath sounds bilaterally, clear to auscultation and percussion. No rales, rhonchi or wheezes noted. No increased work of breathing, no retractions or nasal flaring. Abdomen/GI: Soft, non-tender, with normal bowel sounds. No distension or tympany. No guarding or rebound. No evidence of tenderness throughout. Back: No spinal tenderness. No costovertebral tenderness. Full range of motion. Skin: Warm, dry with normal turgor. Normal color with no rashes, no lesions, and no evidence of cellulitis. Neuro: Awake and alert, GCS 15, oriented to person, place, time, and situation. Cranial nerves II-XII grossly intact. Motor strength 5/5 in all extremities. Sensory grossly intact. Cerebellar exam normal. Normal gait. 17:37 Head/face: Noted is rash, consistent with shingles 17:37 Musculoskeletal/extremity: Extremities: grossly normal except: noted in the right index finger at DIP joint: laceration, superficial and without erythema or discharge , ROM: intact in all extremities, Circulation is intact in all extremities. Sensation intact. Vital Signs: 16:39 BP 128 / 54; Pulse 95; Resp 18; Temp 98.5(O); Pulse Ox 100% on R/A; Weight 65.77 kg; ld1 Height 5 ft. 1 in. (154.94 cm); Pain 10/10; 16:39 Body Mass Index 27.40 (65.77 kg, 154.94 cm) ld1 MDM: 16:35 Patient medically screened. jr8 17:42 Data reviewed: vital signs, nurses notes, lab test result(s), radiologic studies, CT jr8 scan. Data interpreted: Pulse oximetry: on room air is 100 %. Interpretation: normal. Counseling: I had a detailed discussion with the patient and/or guardian regarding: the historical points, exam findings, and any diagnostic results supporting the discharge/admit diagnosis, lab results, radiology results, the need for outpatient follow up, a family practitioner, to return to the emergency department if symptoms worsen or persist or if there are any questions or concerns that arise at home. Response to treatment: the patient's symptoms have mildly improved after treatment. 17:42 ED course: Discussed with patient no major findings on blood work. Head CT unremarkable jr8 at this time. Discussed with her that the headache and rash on the right side consistent with shingles which is is the most likely cause for the headache that she is experiencing. As far as a superficial laceration of her finger would just treat with antibiotic ointment and let continue to heal with minimal use. Otherwise needs to follow-up with family practice in the next few days to make sure that the rash is improving. We will put her on antivirals for the shingles. Patient good with this at this time.. 06/27 16:49 Order name: Basic Metabolic Panel; Complete Time: 17:37 06/27 16:49 Order name: CBC with Diff; Complete Time: 18:08 06/27 16:49 Order name: Magnesium; Complete Time: 17:37 06/27 16:49 Order name: CT Head Brain wo Cont; Complete Time: 17:14 06/27 16:49 Order name: EKG; Complete Time: 16:49 06/27 16:49 Order name: Cardiac monitoring; Complete Time: 16:57 06/27 16:49 Order name: EKG - Nurse/Tech; Complete Time: 16:57 06/27 16:49 Order name: IV Saline Lock; Complete Time: 17:14 06/27 16:49 Order name: Labs collected and sent; Complete Time: 17:14 06/27 16:49 Order name: O2 Per Protocol; Complete Time: 16:57 06/27 16:49 Order name: O2 Sat Monitoring; Complete Time: 16:57 jr8 Administered Medications: 17:13 Drug: Acyclovir 800 mg Route: PO; ld1 17:13 Drug: Ketorolac 15 mg Route: IVP; Site: right antecubital; ld1 17:13 Drug: [place] (HYDROcodone-acetaminophen) (7.5 mg-325 mg) 1 tabs Route: PO; ld1 Disposition Summary: 06/27/21 17:44 Discharge Ordered Location: Home jr8 Problem: new jr8 Symptoms: have improved jr8 Condition: Stable jr8 Diagnosis - Zoster without complications jr8 - Paresthesia of skin jr8 Followup: jr8 - With: Foreign Gutierrez, DO - When: 2 - 3 days - Reason: Recheck today's complaints, Continuance of care, Re-evaluation by your physician Discharge Instructions: - Discharge Summary Sheet jr8 - Paresthesia jr8 - Shingles jr8 Forms: - Medication Reconciliation Form jr8 - Thank You Letter jr8 - Antibiotic Education jr8 - Prescription Opioid Use jr8 Prescriptions: - Tylenol-Codeine #3 300 mg-30 mg Oral - take 2 tablet by ORAL route every 8 hours As needed; 24 tablet; Refills: 0, jr8 Product Selection Permitted - Acyclovir 800 mg Oral Tablet - take 1 tablet by ORAL route 5 times per day for 7 days; 35 tablet; Refills: 0, jr8 Product Selection Permitted Signatures: Dispatcher [employer] Tyrell Lin PA PA jr8 Lacey Valdez, RN RN ld1
[2021-06-27 20:06] VITALS: BP 128/54; TEMP 98.5; O2SAT 100
--- NOTE | 2021-06-28 10:19 | EKG ---
Test Date: 2021-06-27 Test Time: 17:04:54 Enrollment Services Vice President: SHANTELL MEASUREMENT RESULTS: Intervals: Rate: 95 MN: 128 QRSD: 76 QT: 354 QTc: 444 [place]: P: 57 MN: 128 QRS: 60 T: 92 INTERPRETIVE STATEMENTS: Normal sinus rhythm Nonspecific ST and T wave abnormality Abnormal ECG Compared to ECG 05/08/2016 06:03:50 ST (T wave) deviation now present Electronically Signed On 06-28-21 10:17:32 CDT by Richard Shea
== END 2021-06-27 18:09 | disposition home or self-care (01) ==
LOC: ER 16:07
DX: B02.9 Zoster without complications (principal); R20.2 Paresthesia of skin; R51.9 Headache, unspecified; E11.9 Type 2 diabetes mellitus without complications; I10 Essential (primary) hypertension
CPT/HCPCS: 36415; 70450; 80048; 83735; 85025; 93005; 96374; 99284

== ENCOUNTER 2021-06-29 21:41 | Emergency (ER) | payer SELFPAY ==
--- OUTSIDE RECORDS SUMMARY | 2021-06-29 21:43 | XMS REPORT | Continuity of Care Document ---
:1970 Author Organization [facility] t Address [address] [place] [address] Care Team Providers Name Role Phone Opal DIGGS, T Attending Clinician Unavailable Pcp, Does Not Have A Attending Clinician Lab, Fam Pob I Attending Clinician Unavailable ANENE Attending Clinician Unavailable Problems This patient has no known problems. Allergies, Adverse Reactions, Alerts Allergy Allergy Status Severity Reaction(s) Onset Inactive Treating Comm ents Source Name Type Date Date Clinician NO KNOWN Drug Active [facility] ALLERGIE Class [facility] Medications This patient has no known medications. Procedures This patient has no known procedures. Encounters Start End Encounter Admission Attending Care Care Encounter Source Date/Time Date/Time Type Type Clinicians Facility Department ID 2019-10-22 2019-10-22 Letter SAMANTHA Joseph [id number] 00:00:00 00:00:00 (Out) Siomara Earl ANDI [id number] [facility] [id number] 2019-10-22 2019-10-22 Telephone PcpSAMANTHA [id number] 00:00:00 00:00:00 Patient ANDI [id number] Does Not HOSPITAL [id number] Have A [id number] 2019-10-20 2019-10-20 Laboratory Lab, [facility] [id number] 10:11:40 10:31:40 Only Fam Pob I Health [id number] [place] [id number] Professio [phone] nal 0[address] 2019-10-20 2019-10-20 Outpatient R AMANDA [facility] [id number] [facility] 10:20:00 10:20:00 VASYL [facility] Results This patient has no known results.
[2021-06-29] MEDS ORDERED: ONDANSETRON 4 MG (ODT) TAB ONE (22:05)
[2021-06-29] MEDS ORDERED: HYDROCODONE/APAP 7.5/325 MG TAB ONE (22:42)
--- NOTE | 2021-06-29 22:58 | ER ---
Nurse's Notes [facility] Name: Marilee Henderson Age: 50 yrs Sex: Female : 1970 Arrival Date: 06/29/2021 Time: 21:48 Bed 11 Private MD: Diagnosis: Zoster without complications;Nausea Presentation: 06/29 21:59 Chief complaint: Patient states: Pt was here two days ago for shingles. Pt c/o pain and ld1 nausea. Coronavirus screen: At this time, the client does not indicate any symptoms associated with coronavirus-19. Ebola Screen: No symptoms or risks identified at this time. Initial Sepsis Screen: Does the patient meet any 2 criteria? No. Patient's initial sepsis screen is negative. Does the patient have a suspected source of infection? No. Patient's initial sepsis screen is negative. Risk Assessment: Do you want to hurt yourself or someone else? Patient reports no desire to harm self or others. 21:59 Method Of Arrival: Ambulatory ld1 21:59 Acuity: KEVIN 4 ld1 21:59 Onset of symptoms was June 29, 2021. ld1 Triage Assessment: 22:01 General: Appears in no apparent distress. comfortable, Behavior is calm, cooperative, ld1 appropriate for age. Pain: Complains of pain in forehead, right eye and right cheek Pain does not radiate. Pain currently is 9 out of 10 on a pain scale. EENT: No signs and/or symptoms were reported regarding the EENT system. Neuro: Level of Consciousness is awake, alert, obeys commands, Oriented to person, place, time, situation, Appropriate for age. Cardiovascular: Capillary refill < 3 seconds Patient's skin is warm and dry. Respiratory: Airway is patent Respiratory effort is even, unlabored. GI: Abdomen is flat, non-distended, Reports nausea. : No signs and/or symptoms were reported regarding the genitourinary system. Derm: No signs and/or symptoms reported regarding the dermatologic system. Musculoskeletal: No signs and/or symptoms reported regarding the musculoskeletal system. 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 - Social history:: Smoking status: Patient denies any tobacco usage or history of. Patient/guardian denies using alcohol. Screenin:05 Abuse screen: Denies threats or abuse. Denies injuries from another. Nutritional ld1 screening: No deficits noted. Tuberculosis screening: No symptoms or risk factors identified. Fall Risk None identified. Assessment: 22:05 Reassessment: See triage assessment. ld1 Vital Signs: 21:59 BP 118 / 56; Pulse 93; Resp 18; Temp 98.3(TE); Pulse Ox 100% on R/A; Weight 65.77 kg; ld1 Height 5 ft. 3 in. (160.02 cm); Pain 9/10; 21:59 Body Mass Index 25.69 (65.77 kg, 160.02 cm) ld1 ED Course: 21:48 Patient arrived in ED. kz 22:00 Tyrell Zhu PA is PHCP. jr8 22:00 Marvin Salazar MD is Attending Physician. jr8 22:01 Triage completed. ld1 22:01 Arm band placed on right wrist. ld1 22:05 Patient has correct armband on for positive identification. Bed in low position. Call ld1 light in reach. Side rails up X2. Pulse ox on. NIBP on. Door closed. Noise minimized. Warm blanket given. 22:05 No provider procedures requiring assistance completed. Patient did not have IV access ld1 during this emergency room visit. 22:06 Lacey Valdez, CATERINA is Primary Nurse. ld1 Administered Medications: 22:05 Drug: Ondansetron 8 mg Route: PO; ld1 Medication: 22:05 VIS not applicable for this client. ld1 Outcome: 22:58 Discharge ordered by . elder 23:06 Discharged to home ambulatory, with family. ld1 23:06 Condition: stable 23:06 Discharge instructions given to patient, Instructed on discharge instructions, follow up and referral plans. medication usage, Demonstrated understanding of instructions, follow-up care, medications, Prescriptions given X 2. 23:06 Patient left the ED. ld1 Signatures: Tyrell Zhu PA PA jr8 Dibbern, Lauren, RN RN ld1 Odonnell, Ximena kz
--- NOTE | 2021-06-29 22:58 | EDPHYS ---
Physician Documentation [facility] [place], [place] Name: Marilee Henderson Age: 50 yrs Sex: Female : 1970 Arrival Date: 06/29/2021 Time: 21:48 Bed 11 Private MD: ED Physician Marvin Salazar HPI: 06/29 22:54 This 50 yrs old Female presents to ER via Ambulatory with complaints of Facial jr8 Swelling, Vomiting. 22:54 The patient has not experienced similar symptoms in the past. The patient has been jr8 recently seen by a physician: with similar presenting complaints, CT scan was done. Patient came back to ED today for nausea and vomiting. Denies fevers, abdominal pain, or diarrhea. Stated that she can take the medicine and is not affecting her nausea. Pain worse to right side of head where shingles rash is. 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 - Social history:: Smoking status: Patient denies any tobacco usage or history of. Patient/guardian denies using alcohol. ROS: 22:54 Eyes: Negative for injury, pain, redness, and discharge, ENT: Negative for injury, jr8 pain, and discharge, Neck: Negative for injury, pain, and swelling, Cardiovascular: Negative for chest pain, palpitations, and edema, Respiratory: Negative for shortness of breath, cough, wheezing, and pleuritic chest pain, Back: Negative for injury and pain, MS/Extremity: Negative for injury and deformity. 22:54 Abdomen/GI: Positive for nausea and vomiting, Negative for abdominal pain, diarrhea. 22:54 Skin: Positive for rash. 22:54 Neuro: Positive for headache. Exam: 22:54 Eyes: Pupils equal round and reactive to light, extra-ocular motions intact. Lids and jr8 lashes normal. Conjunctiva and sclera are non-icteric and not injected. Cornea within normal limits. Periorbital areas with no swelling, redness, or edema. ENT: Nares patent. No nasal discharge, no septal abnormalities noted. Tympanic membranes are normal and external auditory canals are clear. Oropharynx with no redness, swelling, or masses, exudates, or evidence of obstruction, uvula midline. Mucous membranes moist. Neck: Trachea midline, no thyromegaly or masses palpated, and no cervical lymphadenopathy. Supple, full range of motion without nuchal rigidity, or vertebral point tenderness. No Meningismus. Cardiovascular: Regular rate and rhythm with a normal S1 and S2. No gallops, murmurs, or rubs. Normal PMI, no JVD. No pulse deficits. Respiratory: Lungs have equal breath sounds bilaterally, clear to auscultation and percussion. No rales, rhonchi or wheezes noted. No increased work of breathing, no retractions or nasal flaring. Abdomen/GI: Soft, non-tender, with normal bowel sounds. No distension or tympany. No guarding or rebound. No evidence of tenderness throughout. Back: No spinal tenderness. No costovertebral tenderness. Full range of motion. MS/ Extremity: Pulses equal, no cyanosis. Neurovascular intact. Full, normal range of motion. Neuro: Awake and alert, GCS 15, oriented to person, place, time, and situation. Cranial nerves II-XII grossly intact. Motor strength 5/5 in all extremities. Sensory grossly intact. 22:54 Skin: Patient has vesicluar rash consistent with shingles to right forehead and scalp. Vital Signs: 21:59 BP 118 / 56; Pulse 93; Resp 18; Temp 98.3(TE); Pulse Ox 100% on R/A; Weight 65.77 kg; ld1 Height 5 ft. 3 in. (160.02 cm); Pain 9/10; 21:59 Body Mass Index 25.69 (65.77 kg, 160.02 cm) ld1 MDM: 22:00 Patient medically screened. jr8 22:54 Data reviewed: vital signs, nurses notes, and as a result, I will discharge patient. jr8 Data interpreted: Pulse oximetry: on room air is 100 %. Interpretation: normal. Counseling: I had a detailed discussion with the patient and/or guardian regarding: the historical points, exam findings, and any diagnostic results supporting the discharge/admit diagnosis, the need for outpatient follow up, a family practitioner, to return to the emergency department if symptoms worsen or persist or if there are any questions or concerns that arise at home. Response to treatment: the patient's symptoms have markedly improved after treatment. Administered Medications: 22:05 Drug: Ondansetron 8 mg Route: PO; ld1 Disposition Summary: 06/29/21 22:58 Discharge Ordered Location: Home jr Problem: new jr8 Symptoms: have improved jr8 Condition: Stable jr8 Diagnosis - Zoster without complications jr8 - Nausea jr8 Followup: jr8 - With: Private Physician - When: 5 - 6 days - Reason: Recheck today's complaints, Re-evaluation by your physician Discharge Instructions: - Discharge Summary Sheet jr8 - Nausea, Adult jr8 - Shingles jr8 Forms: - Medication Reconciliation Form jr8 - Thank You Letter jr8 - Antibiotic Education jr8 - Prescription Opioid Use jr8 Prescriptions: - gabapentin 300 mg Oral capsule - take 1 capsule by ORAL route 2 times per day; 28 capsule; Refills: 0, Product jr8 Selection Permitted - ondansetron 4 mg Oral tablet,disintegrating - place 1 tablet by TRANSLINGUAL route every 6 hours As needed; 12 tablet; jr8 Refills: 0, Product Selection Permitted Signatures: Tyrell Zhu PA PA jr8 Lacey Valdez, RN RN ld1
[2021-06-30 02:55] VITALS: BP 118/56; TEMP 98.3; O2SAT 100
== END 2021-06-29 23:06 | disposition home or self-care (01) ==
LOC: ER 21:41
DX: B02.9 Zoster without complications (principal); R11.0 Nausea; R51.9 Headache, unspecified
CPT/HCPCS: 99283

== ENCOUNTER 2022-03-09 11:52 | Emergency (ER) | payer SELFPAY ==
--- OUTSIDE RECORDS SUMMARY | 2022-03-09 11:56 | XMS REPORT | Continuity of Care Document ---
:1970 Author Organization [facility] t Address [address] [place] [address] Care Team Providers Name Role Phone Pcp, Patient Does Not Have A Primary Care Physician +[phone] 00-0000 Hans Gardner Attending Clinician HANS VORA Attending Clinician Unavailable Siomara Joseph RN Attending Clinician Unavailable Pcp, Patient Does Not Have A Attending Clinician [phone]- [phone] Lab, Adc Fam Pob I Attending Clinician Unavailable VASYL PATEL Attending Clinician Unavailable Payers Payer Name Policy Type Policy Number Effective Date Expiration Date [place] [employer] [id number] DETERMINATION [employer] 00:00:00 Problems Condition Condition Condition Status Onset Resolution Last Treating Co mments Source Name Details Category Date Date Treatment Clinician Date No known No known Disease Unive rs active active ity of problems problems [facility] Allergies, Adverse Reactions, Alerts Allergy Allergy Status Severity Reaction(s) Onset Inactive Treating Comm ents Source Name Type Date Date Clinician NO KNOWN Drug Active Univers ALLERGIE Class ity of S [facility] Social History Social Habit Start Date Stop Date Quantity Comments Source Exposure to 2021-06-24 2021-07-04 Not sure [facility] SARS-CoV-2 (event) 00:00:00 20:50:00 Medica l Branch Sex Assigned At [birth year] [facility] 00:00:00 00:00:00 Medical Branch Smoking Status Start Date Stop Date Source Unknown if ever smoked [facility] Medications Ordered Filled Start Stop Current Ordering Indication Dosage Frequency Signature Comments Components Source Medication Medication Date Date Medication? Clinician (SIG) Name Name cefTRIAXone 2021- No 1000mg 1,000 mg, Univers (ROCEPHIN) 07-05 IV ity of 1,000 mg in 04:30: 04:11 Piggyback, [place] NaCl 0.9% 00 :00 ONCE, 1 Medical (NS) 50 mL dose, On Bran h MINI-BAG Sun07/04/21 at 2330, Administer over 30 Minutes, 50 mL
Reas on for Anti-Infec tive: Empiric Therapy for Suspected Infection< br>Empiric Therapy Site: Urine
D uration of therapy: 7 days ketorolac 2021- No 30mg 30 mg, Unive rs (TORADOL) 07-05 Slow IV ity of injection 03:45: 03:01 Push, [place] 30 mg 00 :00 ONCE, 1 Medical dose, On Branch Sun07/04/21 at 2245, Routine
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 Restricted medication : HANS VORA metoclopram 2021- No 10mg 10 mg, Uni vers link HCl 07-05 Slow IV ity of (REGLAN) 03:45: 03:00 Push, [place] injection 00 :00 ONCE, 1 Medical 10 mg dose, On Branch Sun07/04/21 at 2245, ARIANA NaCl 0.9% 2021- No 1000mL at 999 Uni vers (NS) bolus 07-05 mL/hr, ity of infusion 03:45: 03:45 1,000 mL, Darek as 1,000 mL 00 :00 IV Medical Infusion, Branch ONCE, 1 dose, On Sun07/04/21 at 2245, ARIANA metoclopram Yes [id number] 10mg Take 1 Univers link HCl 10 -16 tablet by ity of mg tablet 00:00: mouth [place] 00 every 6 Medical (six) Branch hours as needed for Nausea and Vomiting (N/V). cefdinir 2021- No [id number] 300mg Take 1 Univers 300 mg 5-04 07-24 capsule by ity of capsule 00:00: 04:59 mouth [place] 00 :00 every 12 Medical (twelve) Branch hours for 7 days. Vital Signs Vital Name Observation Time Observation Value Comments Source Systolic blood 2021-07-05 04:46:00 129 mm[Hg] Univer sity of pressure [facility] Diastolic blood 2021-07-05 04:46:00 62 mm[Hg] Unive rsity of [facility] Heart rate 2021-07-05 04:46:00 94 /min [facility] Respiratory rate 2021-07-05 04:46:00 12 /min [facility] Oxygen saturation in 2021-07-05 04:46:00 98 /min [facility] Arterial blood by [facility] Pulse oximetry Dahinda Body temperature 2021-07-05 01:53:00 37.39 Mala [facility] Body height 2021-07-05 01:53:00 152.4 cm [facility] Body weight 2021-07-05 01:53:00 65.772 kg [facility] BMI 2021-07-05 01:53:00 28.32 kg/m2 [facility] Procedures Procedure Date / Time Performed Performing Clinician Sourc e LIPASE 2021-07-05 02:59:00 Hans Vora [facility] COMP. METABOLIC PANEL 2021-07-05 02:59:00 Hans Vora Un [facility] ([id number]) [facility] CBC WITH DIFF 2021-07-05 02:59:00 Hans Vora [facility] URINALYSIS 2021-07-05 02:59:00 Hans Vora [facility] NOTICE OF PRIVACY 2021-07-05 01:28:16 Doctor Unassigned, No [facility] PRACTICES Name [facility] Branch CONSENT/REFUSAL FOR 2021-07-05 01:27:41 [facility], No [facility] AND Name Medical Dahinda TREATMENT Encounters Start End Encounter Admission Attending Care Care Encounter Source Date/Time Date/Time Type Type Clinicians Facility Department ID 2021-07-04 2021-07-04 Emergency ENDER Vora [id number] [facility] 20:57:00 23:49:00 Hans Huerta CHITO [id number] ity [facility] [id number] [facility] [id number] [address] 2021-07-04 2021-07-04 Emergency X VEGA, [facility] ERT [id number] Univers 20:57:00 23:49:00 HANS dunn [facility] 2019-10-22 2019-10-22 Letter SAMANTHA Joseph [id number] 00:00:00 00:00:00 (Out) Siomara ESCAMILLA [id number] HOSPITAL [id number] 2019-10-22 2019-10-22 Telephone PcpSAMANTHA [id number] 00:00:00 00:00:00 Patient ANDI [id number] Does Not HOSPITAL [id number] Have A [id number] 2019-10-20 2019-10-20 Laboratory Lab, [facility] [id number] 10:11:40 10:31:40 Only Fam Pob I Health [id number] [place] [id number] Professio [id number] [address]al [address] 2019-10-20 2019-10-20 Outpatient Franklin PATEL, [facility] [id number] Univers 10:20:00 10:20:00 VASYL dunn [facility] Results Test Description Test Time Test Comments Results Result Comments Source COMP. METABOLIC PANEL (42927) 2021-07-05 03:23:58 Test Item Value Reference Range Interpretation Comme nts NA (test code = 6931366197) 134 mmol/L 135-145 L K (test code = 2120752493) 4.9 mmol/L 3.5-5.0 CL (test code = 8186445391) 95 mmol/L 98-108 L CO2 TOTAL (test code = 7255615299) 26 mmol/L 23-31 AGAP (test code = 2130690498) 2-16 BUN (test code = 7093088320) 13 mg/dL 7-23 GLUCOSE (test code = 3665774145) 337 mg/dL 70-110 H CREATININE (test code = 0.47 mg/dL 0.50-1.04 L 8354051509) TOTAL BILI (test code = 0.7 mg/dL 0.1-1.8 2540008967) CALCIUM (test code = 3777203115) 9.4 mg/dL 8.6-10.6 T PROTEIN (test code = 2716593731) 7.9 g/dL 6.3-8.2 ALBUMIN (test code = 9502185743) 4.6 g/dL 3.5-5.0 ALK PHOS (test code = 2295733731) 75 U/L 34-122 ALTv (test code = 1742-6) 16 U/L 5-35 AST(SGOT) (test code = 8527739187) 18 U/L 13-40 eGFR (test code = 8223780544) mL/min/1.73m2 SNEHA (test code = SNEHA) Association of Glomerular Filtration Rate (GFR) and Staging of Kidney Disease* + +-------- + ------+| GFR (mL/min/1.73 m2) ?| With Kidney Damage ?| ?Without Kidney Damage+ +-- + +| ?>90 ?| ?Stage one ?| ? Normal ?+ +------- + -------+| ?60-89 ?| ?Stage two ?| ? Decreased GFR ? + +-------- + ------+| ?30-59 ?| ?Stage three ?| ? Stage three ? + +-------- + ------+| ?15-29 ?| ?Stage four ? | ? Stage four ?+ +------- + -------+| ?<15 (or dialysis) ? ?| ?Stage five ? | ? Stage five ?+ +------- + -------+ *Each stage assumes the associated GFR level has been in effect for at least three months. ?Stages 1 to 5, with or without kidney disease, indicate chronic kidney disease. Notes: Determination of stages one and two (with eGFR >59mL/min/1.73 m2) requires estimation of kidney damage for at least three months as defined by structural or functional abnormalities of the kidney, manifested by either:Pathological abnormalities or Markers of kidney damage (including abnormalities in the composition of the blood or urine or abnormalities in imaging tests). Lab Interpretation (test code = Abnormal 73239-7) [facility]38 Test Item Value Reference Range Interpretation Comments LIPASE (test code = 0446157490) 149 U/L 0-220 Lab Interpretation (test code = Normal 71775-1) [facility] [id number] 03:16:01 Test Item Value Reference Range Interpretation Comments WBC (test code = See_Comment [Automated 6690-2) message] The sy stem which generated this result transmitted reference range : 4.30 - 11.10 10*3/?L. The reference range was not used to interpret this result as normal/abnormal . RBC (test code = See_Comment [Automated 789-8) message] The sy stem which generated this result transmitted reference range : 3.93 - 5.25 10*6/?L. The reference range was not used to interpret this result as normal/abnormal . HGB (test code = 14.3 g/dL 11.6-15.0 718-7) HCT (test code = 40.3 % 35.7-45.2 4544-3) MCV (test code = 83.3 fL 80.6-95.5 787-2) MCH (test code = 29.5 pg 25.9-32.8 785-6) MCHC (test code = 35.5 g/dL 31.6-35.1 H 786-4) RDW-SD (test code = 36.6 fL 39.0-49.9 L 46321-1) RDW-CV (test code = 12.2 % 12.0-15.5 788-0) PLT (test code = See_Comment [Automated 777-3) message] The sy stem which generated this result transmitted reference range : 166 - 358 10*3/ ?L. The reference r saul was not used to interpret this result as normal/abnormal . MPV (test code = 10.3 fL 9.5-12.9 04417-8) NRBC/100 WBC (test See_Comment [Automat ed code = 2062185579) message] The system which generated this result transmitted reference range : 0.0 - 10.0 /100 WBCs. The refer ence range was not u sed to interpret th is result as normal/abnormal . NRBC x10^3 (test code <0.01 See_Comment [Auto mated = 9333479836) message] The s ystem which generated this result transmitted reference range : 10*3/?L. The reference range was not used to interpret this result as normal/abnormal . GRAN MAT (NEUT) % 67.6 % (test code = 770-8) IMM GRAN % (test code 0.50 % = 7254814331) LYMPH % (test code = 25.0 % 736-9) MONO % (test code = 6.2 % 5905-5) EOS % (test code = 0.3 % 713-8) BASO % (test code = 0.4 % 706-2) GRAN MAT x10^3(ANC) 6.97 10*3/uL 1.88-7.09 (test code = 6591780649) IMM GRAN x10^3 (test 0.05 10*3/uL 0.00-0.06 code = 4576732408) LYMPH x10^3 (test code 2.58 10*3/uL 1.32-3.29 = 731-0) MONO x10^3 (test code 0.64 10*3/uL 0.33-0.92 = 742-7) EOS x10^3 (test code = 0.03 10*3/uL 0.03-0.39 711-2) BASO x10^3 (test code 0.04 10*3/uL 0.01-0.07 = 704-7) Lab Interpretation Abnormal (test code = 89363-1) [facility]"
[2022-03-09 13:01] LABS: Absolute Lymphocytes (CBC) 0.9 K/uL (0.7-4.9); Hematocrit 35.2 % (36.0-45.0); Lymphocytes % 6.2 % (15.3-44.8); MCV 85.4 fL (80-100); MPV 8.6 fL (7.6-11.3); RBC Red Blood Cell Count 4.13 M/uL (3.86-4.86)
--- NOTE | 2022-03-09 13:06 | RAD REPORT ---
EXAM DESCRIPTION: RAD - Chest Single View - 03/09/2022 12:57 pm CLINICAL HISTORY: CHEST PAIN Chest pain. COMPARISON: Abdomen 1 View (KUB) dated 09/20/2018; Chest Single View dated 05/07/2016; CHEST SINGLE VIE W dated 12/07/2014; CHEST SINGLE VIEW dated 03/22/2012 FINDINGS: Portable technique limits examination quality. The lungs are grossly clear. The heart is normal in size. No displaced fractures. IMPRESSION: No acute intrathoracic process suspected.
[2022-03-09 13:15] LABS: Magnesium 1.8 mg/dL (1.6-2.4); Potassium 3.8 mmol/L (3.5-5.1); Troponin High Sensitivity 3.8 pg/mL (<58.9)
[2022-03-09 13:34] LABS: SARS-COV-2 RT PCR NEGATIVE (NEGATIVE)
[2022-03-09] MEDS ORDERED: INSULIN -REGULAR HUMAN 50 UNIT/0.5 ML ML ONE (13:58)
[2022-03-09] MEDS ORDERED: NA CHLORIDE 0.9% 1,000 ML ONE (13:59)
--- NOTE | 2022-03-09 14:07 | ER ---
Nurse's Notes [facility] Name: Marilee Henderson Age: 51 yrs Sex: Female : 1970 Arrival Date: 03/09/2022 Time: 11:56 Bed 17 Private MD: Foreign Gutierrez H Diagnosis: Type 2 diabetes mellitus with foot ulcer Presentation: 03/09 12:03 Chief complaint: Patient states: has a sore on bottom of her right foot , does not know iw how long, is diabetes , and my chest and arms hurt since last night. Coronavirus screen: At this time, the client does not indicate any symptoms associated with coronavirus-19. Ebola Screen: Patient negative for fever greater than or equal to 101.5 degrees Fahrenheit, and additional compatible Ebola Virus Disease symptoms Patient denies exposure to infectious person. Patient denies travel to an Ebola-affected area in the 21 days before illness onset. No symptoms or risks identified at this time. Initial Sepsis Screen: Does the patient meet any 2 criteria? HR > 90 bpm. Does the patient have a suspected source of infection? Yes:. Risk Assessment: Do you want to hurt yourself or someone else? Patient reports no desire to harm self or others. Onset of symptoms was March 08, 2022. 12:03 Method Of Arrival: Ambulatory iw 12:03 Acuity: KEVIN 3 iw Historical: - Allergies: 12:06 No Known Allergies; iw - PMHx: 12:06 ADD/ADHD; Anxiety; Diabetes - NIDDM; Hypertensive disorder; iw - PSHx: 12:06 section; iw - Immunization history:: Adult Immunizations unknown. - Social history:: Smoking status: Patient denies any tobacco usage or history of. Screenin:00 [facility] ED Fall Risk Assessment (Adult) History of falling in the last 3 months, ko1 including since admission No falls in past 3 months (0 pts) Confusion or Disorientation No (0 pts) Intoxicated or Sedated No (0 pts) Impaired Gait No (0 pts) Mobility Assist Device Used No (0 pt) Altered Elimination No (0 pt) Score/Fall Risk Level 0 - 2 = Low Risk Oriented to surroundings, Maintained a safe environment, Educated pt \T\ family on fall prevention, incl call for assistance when getting out of bed, Assessed \T\ reinforced patient's understanding of fall precautions, Provided non-skid footwear, Hourly rounding (assess needs \T\ fall precautionary measures) done, Used ambulatory aids as needed (educated on \T\ assisted with), Used gait belt as appropriate. Abuse screen: Denies threats or abuse. Denies injuries from another. Nutritional screening: No deficits noted. Tuberculosis screening: No symptoms or risk factors identified. Assessment: 13:00 General: Appears in no apparent distress. comfortable, Behavior is calm, cooperative, ko1 appropriate for age. Pain: Pain does not radiate. Pain began gradually. Neuro: No deficits noted. Cardiovascular: No deficits noted. Respiratory: No deficits noted. GI: No deficits noted. : No deficits noted. EENT: No deficits noted. Derm: No deficits noted. Musculoskeletal: No deficits noted. Vital Signs: 12:03 BP 145 / 81; Pulse 102; Resp 16; Temp 97.9; Pulse Ox 100% on R/A; iw 13:00 BP 138 / 78; Pulse 98; Resp 18; Pulse Ox 99% ; ko1 14:47 BP 135 / 82; Pulse 101; Resp 16; Pulse Ox 99% ; ko1 ED Course: 11:56 Patient arrived in ED. mr 11:56 Foreign Gutierrez DO is Private Physician. mr 12:06 Triage completed. iw 12:06 Arm band placed on. iw 12:07 Lilia Saleh, CATERINA is Primary Nurse. ko1 12:25 Dolores Darden PA-C is PHCP. sb4 12:25 Gonsalo Morataya MD is Attending Physician. sb4 12:42 EKG done, by ED staff. bc6 12:53 COVID-19/FLU A+B Sent. bc6 12:53 Basic Metabolic Panel Sent. bc6 12:53 CBC with Diff Sent. bc6 12:53 Magnesium Sent. bc6 12:53 NT PRO-BNP Sent. bc6 12:53 Troponin HS Sent. bc6 12:53 Initial lab(s) drawn, by me, sent to lab. COVID swab sent to lab. Inserted saline lock: bc6 20 gauge in right antecubital area, using aseptic technique. 12:59 XRAY Chest (1 view) In Process Unspecified. EDMS 13:00 Patient has correct armband on for positive identification. Placed in gown. Bed in low ko1 position. Call light in reach. Side rails up X 1. Client placed on continuous cardiac and pulse oximetry monitoring. NIBP monitoring applied. monitor tech on. 13:00 No provider procedures requiring assistance completed. Patient maintains SpO2 ko1 saturation greater than 95% on room air. 14:07 oFreign Gutierrez DO is Referral Physician. sb4 14:07 Yousuf Miller MD is Referral Physician. sb4 14:47 IV discontinued, intact, bleeding controlled, No redness/swelling at site. Pressure ko1 dressing applied. Administered Medications: 13:59 Drug: NS 0.9% 1000 ml Route: IV; Rate: 1 bolus; Site: right antecubital; ko1 14:01 Drug: Insulin Regular Human 5 units {Co-Signature: ss (Roseline Reyes RN).} Route: IVP; ko1 Site: right antecubital; 14:09 Drug: LevaQUIN (levofloxacin) 500 mg Route: PO; ko1 Medication: 13:00 VIS not applicable for this client. ko1 Outcome: 14:07 Discharge ordered by MD. sb4 14:47 Discharged to home ambulatory. ko1 14:47 Condition: improved 14:47 Discharge instructions given to patient, Instructed on discharge instructions, follow up and referral plans. medication usage, Demonstrated understanding of instructions, follow-up care, medications, Prescriptions given X 2. 15:07 Patient left the ED. ko1 Signatures: Dispatcher [employer] [facility] WardKaren mr Lamar Mack RN RN iw Oliver, Kathy, RN RN ko1 Dolores Darden, ROBERTA PALima Savage 6 Roseline Reyes RN ss
--- NOTE | 2022-03-09 14:07 | EDPHYS ---
Physician Documentation [facility] Name: Marilee Henderson Age: 51 yrs Sex: Female : 1970 Arrival Date: 03/09/2022 Time: 11:56 Bed 17 Private MD: Foreign Gutierrez H ED Physician Gonsalo Morataya HPI: 03/09 12:37 This 51 yrs old Female presents to ER via Ambulatory with complaints of Chest sb4 Pain, Arm Pain, Skin Sore(s). Historical: - Allergies: 12:06 No Known Allergies; iw - PMHx: 12:06 ADD/ADHD; Anxiety; Diabetes - NIDDM; Hypertensive disorder; iw - PSHx: 12:06 section; iw - Immunization history:: Adult Immunizations unknown. - Social history:: Smoking status: Patient denies any tobacco usage or history of. ROS: 15:28 Constitutional: Negative for fever, chills, and weight loss, Eyes: Negative for injury, sb4 pain, redness, and discharge, ENT: Negative for injury, pain, and discharge, Respiratory: Negative for shortness of breath, cough, wheezing, and pleuritic chest pain, Abdomen/GI: Negative for abdominal pain, nausea, vomiting, diarrhea, and constipation, Back: Negative for injury and pain. 15:28 Cardiovascular: Positive for chest pain, Negative for edema, palpitations. 15:28 MS/extremity: Positive for wrist pain bilaterally. positive for diabetic neuropathy in feet bilaterally. 15:28 Skin: Positive for lesions, ulceration. 15:28 Neuro: Positive for 15:28 Neuro: Exam: 15:28 Constitutional: This is a well developed, well nourished patient who is awake, alert, sb4 and in no acute distress. Head/Face: Normocephalic, atraumatic. Eyes: Pupils equal round and reactive to light, extra-ocular motions intact. Periorbital areas with no swelling, redness, or edema. ENT: Mucous membranes moist. Cardiovascular: Regular rate and rhythm with a normal S1 and S2. Respiratory: Lungs have equal breath sounds bilaterally, clear to auscultation and percussion. No rales, rhonchi or wheezes noted. No increased work of breathing, no retractions or nasal flaring. Abdomen/GI: Soft, non-tender, no distension. Back: No spinal tenderness. No costovertebral tenderness. Full range of motion. Neuro: Awake and alert, GCS 15, oriented to person, place, time, and situation. Cranial nerves II-XII grossly intact. Motor strength 5/5 in all extremities. Sensory grossly intact. Cerebellar exam normal. Normal gait. 15:28 Skin: Appearance: normal except for affected area, stage 1 diabetic foot ulcer to right "ball" of foot. Vital Signs: 12:03 BP 145 / 81; Pulse 102; Resp 16; Temp 97.9; Pulse Ox 100% on R/A; iw 13:00 BP 138 / 78; Pulse 98; Resp 18; Pulse Ox 99% ; ko1 14:47 BP 135 / 82; Pulse 101; Resp 16; Pulse Ox 99% ; ko1 MDM: 12:32 Patient medically screened. sb4 15:28 Differential diagnosis: URI, bronchitis, angina, COVID, flu, diabetic foot ulcer, HHS. sb4 Data reviewed: vital signs, nurses notes, lab test result(s), EKG, radiologic studies, plain films, I have discussed the patient's presentation/case with the attending Emergency Department Physician; and as a result, I will discharge patient. Consideration of Admission/Observation Escalation of care including admission/observation considered. Historians other than the Patient: Spouse/Significant Other: . Care significantly affected by the following chronic conditions: Diabetes. Response to treatment: the patient's symptoms have mildly improved after treatment, and as a result, I will discharge patient. 03/09 12:33 Order name: Basic Metabolic Panel; Complete Time: 13:20 4 03/09 12:33 Order name: CBC with Diff; Complete Time: 13:09 4 03/09 12:33 Order name: Magnesium; Complete Time: 13:20 4 03/09 12:33 Order name: NT PRO-BNP; Complete Time: 13:20 4 03/09 12:33 Order name: Troponin HS; Complete Time: 13:20 4 03/09 12:33 Order name: COVID-19/FLU A+B; Complete Time: 13:52 4 03/09 12:33 Order name: XRAY Chest (1 view); Complete Time: 13:09 4 03/09 12:33 Order name: EKG; Complete Time: 12:35 sb4 03/09 12:33 Order name: Cardiac monitoring; Complete Time: 12:43 sb4 03/09 12:33 Order name: EKG - Nurse/Tech; Complete Time: 12:42 sb4 03/09 12:33 Order name: IV Saline Lock; Complete Time: 12:53 sb4 03/09 12:33 Order name: Labs collected and sent; Complete Time: 12:53 sb4 03/09 12:33 Order name: O2 Per Protocol; Complete Time: 12:43 sb4 03/09 12:33 Order name: O2 Sat Monitoring; Complete Time: 12:43 sb4 Administered Medications: 13:59 Drug: NS 0.9% 1000 ml Route: IV; Rate: 1 bolus; Site: right antecubital; ko1 14:01 Drug: Insulin Regular Human 5 units {Co-Signature: ss (Roseline Reyes RN).} Route: IVP; ko1 Site: right antecubital; 14:09 Drug: LevaQUIN (levofloxacin) 500 mg Route: PO; ko1 Disposition: 16:40 Co-signature as Attending Physician, Gonsalo Morataya MD I agree with the assessment and kdr plan of care. Disposition Summary: 03/09/22 14:07 Discharge Ordered Location: Home sb4 Problem: new sb4 Symptoms: are unchanged sb4 Condition: Stable sb4 Diagnosis - Type 2 diabetes mellitus with foot ulcer sb4 Followup: sb4 - With: - When: 2 - 3 days - Reason: Recheck today's complaints, Continuance of care, Re-evaluation by your physician Followup: sb4 - With: - When: 7 - 10 days - Reason: Recheck today's complaints, Continuance of care, Re-evaluation by your physician Discharge Instructions: - Discharge Summary Sheet sb4 - Diabetes Mellitus and Foot Care sb4 Forms: - Medication Reconciliation Form sb4 - Thank You Letter sb4 - Antibiotic Education sb4 - Prescription Opioid Use sb4 Prescriptions: - levofloxacin 500 mg Oral Tablet - take 1 tablet by ORAL route once daily for 10 days; 20 tablet; Refills: 0, sb4 Product Selection Permitted - Diclofenac Sodium 75 mg Oral Tablet Sustained Release - take 1 tablet by ORAL route 2 times per day; 30 tablet; Refills: 0, Product sb4 Selection Permitted Signatures: Dispatcher [employer] Gonsalo Garcia MD MD kdr Williams, Irene RN RN iw Lilia Saleh, RN RN [email or web address] Dolores Darden, PA-C PA-C sb4 Roseline Reyes RN ss
[2022-03-09] MEDS ORDERED: levoFLOXacin 500 MG TAB ONE (14:11)
[2022-03-09 15:53] VITALS: TEMP 97.9
[2022-03-09 15:58] VITALS: O2SAT 99
[2022-03-09 16:03] VITALS: BP 135/82
--- NOTE | 2022-03-10 17:34 | EKG ---
Test Date: 2022-03-09 Test Time: 12:16:43 Pattern Maker Programer: ADALI MEASUREMENT RESULTS: Intervals: Rate: 109 MN: 126 QRSD: 82 QT: 328 QTc: 441 [place]: P: 50 MN: 126 QRS: 16 T: 78 INTERPRETIVE STATEMENTS: Sinus tachycardia Otherwise normal ECG Compared to ECG 06/27/2021 17:04:54 Sinus rhythm no longer present ST (T wave) deviation no longer present Electronically Signed On 03-10-22 17:31:15 REGISTERED PUBLIC HEALTH NURSE by Joaquin Seaman
== END 2022-03-09 15:07 | disposition home or self-care (01) ==
LOC: ER 11:52
DX: E11.621 Type 2 diabetes mellitus with foot ulcer (principal); L97.511 Non-pressure chronic ulcer of other part of right foot limited to breakdown of skin; E11.9 Type 2 diabetes mellitus without complications; I10 Essential (primary) hypertension; F41.9 Anxiety disorder, unspecified; F90.9 Attention-deficit hyperactivity disorder, unspecified type; Z20.822 Contact with and (suspected) exposure to COVID-19
CPT/HCPCS: 0240U; 36415; 71045; 80048; 83735; 83880; 84484; 85025; 93005; 96374; 99285; J1815; J7030

== ENCOUNTER 2024-04-02 19:29 | Emergency (ER) | payer SELFPAY ==
--- OUTSIDE RECORDS SUMMARY | 2024-04-02 19:32 | XMS REPORT | Clinical Summary ---
Author Name Unknown Organization [facility] Address [address] [place] [address] Care Team Providers Care Bingo Checker Name Role Phone Unavailable Primary Care Provider Unavailabl e Encounters Date Type Department Care Team Description 11/06/2023 10:50 AM CDT Ancillary Procedure Mobile Mammography [address] [place], [place] [id number] Ramana Flores MD Screening mammography after 04/03/2023 Surgical History Surgery Date Site/Laterality Comments HYSTERECTOMY 02/19/1994 - 02/18/1995 Social History Tobacco Use Types Packs/Day Years Used Date Smoking Tobacco: Never Assessed Comments No Sex and Gender Information Value Date Recorded Sex Assigned at Not on file Legal Sex Female 11:05 AM CDT Gender Identity Not on file Sexual Orientation Not on file Obstetrics History Para Term AB IAB SAB Ectopic Multiple Livin g Live Births 3 3 3 Date Outcome GA Total Labor Labor/2nd/3rd Weight Sex Type Anes PTL Emmanuelle A1 A5 Name Clin Term Term Term Plan of Treatment Health Maintenance Due Date Last Done Comments Pneumococcal Vaccine: 50+ Ye ars (1 of 1 - PCV) 08/22/2019 COVID-19 Vaccine (2023-2 5 season) 2023 Influenza Vaccine (#1) 2023 Pneumococcal Vaccine Aged Out No long er eligible based on patient's age to complete this topic Procedures Procedure Name Priority Date/Time Associated Diagnosis Comments MOBILE MAMMO DIGITAL SCREENING BILATERAL W GORDO Routine 11/06/2023 11:53 AM CDT Screening mammography after 04/03/2023 Results * Mobile Mammography Screening Bilateral with Gordo (11/06/2023 11:53 AM CDT) Anatomical Region Laterality Modality Breast Bilateral Mammography Impressions 11/06/2023 2:13 PM CDT Bilateral There is no mammographic evidence of malignancy. Overall BI-RAD Category: 1 - Negative Recommend return to annual screening mammography, due on 11/04/2024. Narrative 11/06/2023 2:13 PM CDT CLINICAL INDICATION: Patient is a 53 y.o. female and is seen for screening. Mobile Mammography Screening Bilateral with Gordo Computer-aided detection was utilized by the radiologist in the interpretation of this examination. Tomosynthesis was performed in CC and MLO projections. COMPARISON: No comparisons were made when reading this study. FINDINGS: There are scattered areas of fibroglandular density. Bilateral No dominant mass, architectural distortion, or suspicious calcifications are identified. us Alba Walker MD IM MAMMOGRAPHY ORDERABLES F inal Result after 04/03/2023
--- NOTE | 2024-04-02 20:14 | EDPHYS ---
Physician Documentation [facility] Name: Marilee Henderson Age: 53 yrs Sex: Female : 1970 Arrival Date: 04/02/2024 Time: 19:29 Bed 5 Private MD: ED Physician Marvin Salazar HPI: 04/02 22:24 This 53 yrs old Female presents to ER via Ambulatory with complaints of kb BLISTER ON FOOT. 22:24 Pt is a 53 year old female who presents for blister to ball of right foot that kb developed today. Son states pt had a pistachio shell in her shoe and didn't know it so she walked around all day and when she took her shoe off she saw the blister. States she is diabetic so they came to get antibiotics to prevent infection. CHILD SUPPORT SPECIALIST: 19:55 LMP N/A - Post-menopause, Not me1 Historical: - Allergies: 19:55 No Known Allergies; me1 - PMHx: 19:55 ADD/ADHD; Anxiety; Diabetes - NIDDM; Hypertensive disorder; me1 - PSHx: 19:55 section; me1 - Immunization history:: Adult Immunizations up to date. - Infectious Disease History:: Denies. - Social history:: Smoking status: Patient denies any tobacco usage or history of. ROS: 22:23 Constitutional: As per HPI kb Exam: 22:23 Constitutional: This is a well developed, well nourished patient who is awake, alert, kb and in no acute distress. Head/Face: Normocephalic, atraumatic. ENT: Moist Mucous membranes Cardiovascular: Regular rate Respiratory: Respirations even and unlabored. No increased work of breathing. Talking in full sentences MS/ Extremity: Pulses equal, no cyanosis. Neurovascular intact. Full, normal range of motion. Neuro: Awake and alert, GCS 15, oriented to person, place, time, and situation. 22:23 Skin: blister to ball of right foot without erythema, swelling, warmth. Vital Signs: 19:54 BP 177 / 92; Pulse 99; Resp 17; Temp 98.1; Pulse Ox 99% ; Weight 88 kg; Height 5 ft. 1 me1 in. ; Pain 5/10; 19:54 Body Mass Index 36.66 (88.00 kg, 154.94 cm) me1 19:54 Pain Scale: Adult me1 Vlad Coma Score: 20:40 Eye Response: spontaneous(4). Motor Response: obeys commands(6). Verbal Response: dd2 oriented(5). Total: 15. MDM: 19:34 Medical Screening Exam initiated kb 22:23 Differential diagnosis: friction blister, abscess, cellulitis, ulceration. Data kb reviewed: vital signs, nurses notes. Historians other than the Patient: Daughter/Son: son. Counseling: I had a detailed discussion with the patient and/or guardian regarding the historical points, exam findings, and any diagnostic results supporting the discharge/admit diagnosis, the need for outpatient follow up, a family practitioner, to return to the emergency department if symptoms worsen or persist or if there are any questions or concerns that arise at home. Administered Medications: 20:39 Drug: Trimethoprim-Sulfamethoxazole PO (160 mg-800 mg (DS) 1 tablet PO once Route: PO; dd2 20:44 Follow up: Response: Medication administered at discharge. dd2 Disposition Summary: 04/02/24 20:14 Discharge Ordered Notes: Location: Home kb Condition: Stable kb Diagnosis - Blister (nonthermal) of foot kb Followup: kb - With: Emergency Department - When: As needed - Reason: Worsening of condition Followup: kb - With: Private Physician - When: 2 - 3 days - Reason: Recheck today's complaints, Continuance of care, Re-evaluation by your physician Discharge Instructions: - Discharge Summary Sheet kb - Blisters, Adult kb Forms: - Medication Reconciliation Form kb - Antibiotic Education kb - Prescription Opioid Use kb - Patient Portal Instructions kb - Leadership Thank You Letter kb Prescriptions: - Bactrim DS 800-160 mg Oral Tablet - take 1 tablet ORAL route every 12 hours for 10 days; 20 tablet; Refills: 0, kb Product Selection Permitted Signatures: Yue Hart FNP-C FNP-Tanika Reynaga RN RN me1 LEN KABA RN RN dd2
--- NOTE | 2024-04-02 20:14 | ER ---
Nurse's Notes [facility] Name: Marilee Henderson Age: 53 yrs Sex: Female : 1970 Arrival Date: 04/02/2024 Time: 19:29 Bed 5 Private MD: Diagnosis: Blister (nonthermal) of foot Presentation: 04/02 19:54 Chief complaint: Patient states: she had a pistachio nut fall into her shoe and didn't me1 realize it until her foot started hurting and she has a blister on the ball of her right foot that started today. Coronavirus screen: Vaccine status: Patient reports receiving the 2nd dose of the covid vaccine. Ebola Screen: No symptoms or risks identified at this time. Initial Sepsis Screen: Does the patient meet any 2 criteria? No. Patient's initial sepsis screen is negative. Does the patient have a suspected source of infection? No. Patient's initial sepsis screen is negative. Risk Assessment: Do you want to hurt yourself or someone else? Patient reports no desire to harm self or others. Onset of symptoms was April 02, 2024. 19:54 Method Of Arrival: Ambulatory va1 19:54 Acuity: KEVIN 4 me1 BILL OF LADING CLERK: 19:55 LMP N/A - Post-menopause, Not me1 Historical: - Allergies: 19:55 No Known Allergies; me1 - PMHx: 19:55 ADD/ADHD; Anxiety; Diabetes - NIDDM; Hypertensive disorder; me1 - PSHx: 19:55 section; me1 - Immunization history:: Adult Immunizations up to date. - Infectious Disease History:: Denies. - Social history:: Smoking status: Patient denies any tobacco usage or history of. Screenin:40 [facility] ED Fall Risk Assessment (Adult) History of falling in the last 3 months, dd2 including since admission No falls in past 3 months (0 pts) Confusion or Disorientation No (0 pts) Intoxicated or Sedated No (0 pts) Impaired Gait No (0 pts) Mobility Assist Device Used No (0 pt) Altered Elimination No (0 pt) Score/Fall Risk Level 0 - 2 = Low Risk Oriented to surroundings, Maintained a safe environment, Educated pt \T\ family on fall prevention, incl call for assistance when getting out of bed, Assessed \T\ reinforced patient's understanding of fall precautions, Hourly rounding (assess needs \T\ fall precautionary measures) done. Abuse screen: Denies threats or abuse. Nutritional screening: No deficits noted. Tuberculosis screening: No symptoms or risk factors identified. Assessment: 20:39 General: Appears in no apparent distress. Behavior is calm, cooperative, appropriate dd2 for age. Pain:. 20:40 Pain: Complains of pain in ball of right foot Pain does not radiate. Pain currently is dd2 5 out of 10 on a pain scale. Neuro: Byrd Agitation-Sedation Scale (RASS): 0 - Alert and Calm Level of Consciousness is awake, alert, obeys commands, Oriented to person, place, time, situation. Cardiovascular: No deficits noted. Patient's skin is warm and dry. Respiratory: Airway is patent Respiratory effort is even, unlabored, Respiratory pattern is regular, symmetrical. GI: No deficits noted. No signs and/or symptoms were reported involving the gastrointestinal system. Abdomen is non-distended, obese. : No deficits noted. No signs and/or symptoms were reported regarding the genitourinary system. EENT: No deficits noted. No signs and/or symptoms were reported regarding the EENT system. Derm: Wound noted ball of right foot INTACT BLISTER TO BALL OF RT FOOT Reports pain that is 5 out of 10 on a pain scale. Musculoskeletal: No deficits noted. No signs and/or symptoms reported regarding the musculoskeletal system. Circulation, motion, and sensation intact. Range of motion: intact in all extremities. Vital Signs: 19:54 BP 177 / 92; Pulse 99; Resp 17; Temp 98.1; Pulse Ox 99% ; Weight 88 kg; Height 5 ft. 1 me1 in. ; Pain 5/10; 19:54 Body Mass Index 36.66 (88.00 kg, 154.94 cm) me1 19:54 Pain Scale: Adult me1 [place] Coma Score: 20:40 Eye Response: spontaneous(4). Motor Response: obeys commands(6). Verbal Response: dd2 oriented(5). Total: 15. ED Course: 19:32 Patient arrived in ED. [id number] 19:34 Yue Hart FNP-C is [facility]. kb 19:34 Marvin Salazar MD is Attending Physician. kb 19:55 Triage completed. me1 19:55 Arm band placed on Patient placed in an exam room. me1 20:21 LEN KABA, RN is Primary Nurse. dd2 20:40 Patient has correct armband on for positive identification. Bed in low position. Call dd2 light in reach. Client placed on continuous cardiac and pulse oximetry monitoring. NIBP monitoring applied. Door closed. Noise minimized. Verbal reassurance given. 20:40 No provider procedures requiring assistance completed. Patient did not have IV access dd2 during this emergency room visit. Patient maintains SpO2 saturation greater than 95% on room air. Wound care: to BLISTER located on ball of right foot was dressed with 4X4s. 20:44 Provided Education on: D/C EDUCATION. dd2 Administered Medications: 20:39 Drug: Trimethoprim-Sulfamethoxazole PO (160 mg-800 mg (DS) 1 tablet PO once Route: PO; dd2 20:44 Follow up: Response: Medication administered at discharge. dd2 Medication: 20:40 VIS not applicable for this client. dd2 Outcome: 20:14 Discharge ordered by . kb 20:43 Discharged to home ambulatory, dd2 20:43 Condition: stable 20:43 Discharge instructions given to patient, family, Instructed on discharge instructions, follow up and referral plans. medication usage, wound care, Demonstrated understanding of instructions, follow-up care, medications, Prescriptions given X 1, 20:44 Patient left the ED. dd2 Signatures: Yue Hart, PRINTED CIRCUIT BOARD PCB DESIGNER-C PRINTED CIRCUIT BOARD PCB DESIGNER-CkYaneli Kwong [id number] Tanika Sanders RN RN me1 LEN KABA, RN RN dd2 Corrections: (The following items were deleted from the chart) 20:42 20:39 General: Appears in no apparent distress. Behavior is calm, cooperative, dd2 appropriate for age, dd2
[2024-04-02] MEDS ORDERED: SMZ./TMP. 800/160 MG TABLET ONE (20:23)
[2024-04-02 21:12] VITALS: BP 177/92; TEMP 98.1; O2SAT 99
== END 2024-04-02 20:44 | disposition home or self-care (01) ==
LOC: ER 19:29
DX: S90.821A Blister (nonthermal), right foot, initial encounter (principal)

== ENCOUNTER 2024-10-04 11:30 | Emergency (ER) | payer SELFPAY ==
--- OUTSIDE RECORDS SUMMARY | 2024-10-04 11:38 | XMS REPORT | Clinical Summary ---
Author Name Unknown Organization [facility] Address [address] [place] [address] Care Team Providers Care Contract Clerk Name Role Phone Unavailable Primary Care Provider Unavailabl e Encounters Date Type Department Care Team Description 11/06/2023 10:50 AM CDT Ancillary Procedure Mobile Mammography [address] [place], [place] [id number] Ramana Flores MD Screening mammography after 10/05/2023 Surgical History Surgery Date Site/Laterality Comments HYSTERECTOMY [...] Date Last Done Comments Pneumococcal Vaccine: 50+ Years (1 of 1 - PCV) 020 COVID-19 Vaccine ( season) 2023 Influenza Vaccine (#1) 2024 Procedures Procedure Name Priority Date/Time Associated Diagnosis Comments MOBILE MAMMO DIGITAL SCREENING BILATERAL W GORDO Routine 11/06/2023 11:53 AM CDT Screening mammography after 10/05/2023 Results * Mobile Mammography Screening Bilateral with [...] calcifications are identified. us Alba Walker MD IMG MAMMOGRAPHY ORDERABLES F inal Result after 10/05/2023
--- NOTE | 2024-10-04 13:39 | RAD REPORT ---
Exam:Foot Right 3 View CLINICAL HISTORY: Right foot pain FINDINGS: Small transverse lucency proximal aspect third metatarsal. This is equivocal for a stress fracture. C linical correlation is needed to see if the patient has point tenderness in this region to suggest this. Large calcaneal spur No dislocation
[2024-10-04 14:46] LABS: Absolute Lymphocytes (CBC) 1.8 K/uL (0.7-4.9); Hematocrit 35.8 % (36.0-45.0); Hemoglobin 12.3 g/dL (12.0-15.0); MCH 28.6 pg (27.0-35.0); MCHC 34.3 g/dL (32.0-36.0); MCV 83.4 fL (80-100); MPV 9.1 fL (7.6-11.3); Nucleated RBC Absolute Count 0.0 (0-0); Nucleated Red Blood Cells % 0.0 % (0-0); RBC Red Blood Cell Count 4.29 M/uL (3.86-4.86); White Blood Count 7.50 thou/uL (4.3-10.9)
[2024-10-04 15:02] LABS: Anion Gap 7.2 mEq/L (5.0-15.0); BUN Blood Urea Nitrogen 13.0 mg/dL (7-18); Glucose Level 324.0 mg/dL (74-106); Potassium 4.2 mEq/L (3.5-5.1); Uric Acid 3.8 mg/dL (2.6-6.0)
--- NOTE | 2024-10-04 15:20 | EDPHYS ---
Physician Documentation [facility] Name: Marilee Henderson Age: 54 yrs Sex: Female : 1970 Arrival Date: 10/04/2024 Time: 11:30 Bed 20 Private MD: ED Physician Hyacinth Helton HPI: 10/04 14:35 This 54 yrs old Female presents to ER via Ambulatory with complaints of Right sp3 Foot Swelling. 14:35 54-year-old female with history of hypertension, diabetes, anxiety presents as right sp3 foot swelling and pain of the first metatarsal region for the last 7 to 8 days. Symptoms have not gotten better so family brings her in for evaluation. No prior history of gout reported. ROS negative for fever, injury, other joint pain, fever, headache, chest pain, shortness of breath, abdominal pain, vomit, diarrhea, syncope, rash, bleeding or any other signs or symptoms on ROS at this time.. 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 - Infectious Disease History:: Denies. - Social history:: Smoking status: Patient denies any tobacco usage or history of. ROS: 14:36 Constitutional: Negative for fever, chills, and weight loss, Eyes: Negative for injury, sp3 pain, redness, and discharge, ENT: Negative for injury, pain, and discharge, Neck: Negative for injury, pain, and swelling, Cardiovascular: Negative for chest pain, palpitations, and edema, Respiratory: Negative for shortness of breath, cough, wheezing, and pleuritic chest pain, Abdomen/GI: Negative for abdominal pain, nausea, vomiting, diarrhea, and constipation, Back: Negative for injury and pain, Skin: Negative for injury, rash, and discoloration, Neuro: Negative for headache, weakness, numbness, tingling, and seizure, Psych: Negative for depression, anxiety, suicide ideation, homicidal ideation, and hallucinations, Allergy/Immunology: Negative for hives, rash, and allergies, Endocrine: Negative for neck swelling, polydipsia, polyuria, polyphagia, and marked weight changes, Hematologic/Lymphatic: Negative for swollen nodes, abnormal bleeding, and unusual bruising, 14:36 All other systems are negative, Exam: 14:36 Constitutional: This is a well developed, well nourished patient who is awake, alert, sp3 and in no acute distress. Head/Face: Normocephalic, atraumatic. Neck: Trachea midline, no thyromegaly or masses palpated, and no cervical lymphadenopathy. Supple, full range of motion without nuchal rigidity, or vertebral point tenderness. No Meningismus. Chest/axilla: Normal chest wall appearance and motion. Nontender with no deformity. No lesions are appreciated. Cardiovascular: Regular rate and rhythm with a normal S1 and S2. No gallops, murmurs, or rubs. Normal PMI, no JVD. No pulse deficits. Respiratory: Lungs have equal breath sounds bilaterally, clear to auscultation and percussion. No rales, rhonchi or wheezes noted. No increased work of breathing, no retractions or nasal flaring. Abdomen/GI: Soft, non-tender, with normal bowel sounds. No distension or tympany. No guarding or rebound. No evidence of tenderness throughout. Back: No spinal tenderness. No costovertebral tenderness. Full range of motion. Skin: Warm, dry with normal turgor. Normal color with no rashes, no lesions, and no evidence of cellulitis. Neuro: Awake and alert, GCS 15, oriented to person, place, time, and situation. Cranial nerves II-XII grossly intact. Motor strength 5/5 in all extremities. Sensory grossly intact. Cerebellar exam normal. Normal gait. Psych: Awake, alert, with orientation to person, place and time. Behavior, mood, and affect are within normal limits. 14:36 Musculoskeletal/extremity: Right foot swollen particularly in the lower foot and over the metatarsal. There is pain to palpation there. Swelling extends up to the ankle and distal lower extremity. No calf pain noted or reported.. Vital Signs: 11:57 BP 140 / 87; Pulse 88; Resp 18; Temp 98.4; Pulse Ox 100% ; Weight 81.65 kg; Height 5 ar8 ft. 0 in. ; Pain 10/10; 15:29 BP 132 / 82; Pulse 85; Resp 15; Pulse Ox 100% ; jl7 11:57 Body Mass Index 35.15 (81.65 kg, 152.4 cm) ar8 11:57 Pain Scale: Adult ar8 MDM: 12:05 Medical Screening Exam initiated sp3 14:36 Data reviewed: vital signs, nurses notes, lab test result(s), radiologic studies. ED sp3 course: 54-year-old female with right lower extremity swelling and foot pain. Differential diagnosis includes gout, other arthritis, dependent edema, DVT, among others. I am not highly suspicious of PE or other significant event. Will obtain ultrasound right lower extremity and uric acid level along with routine labs. If workup negative we will safely discharge patient home. Otherwise we will treat any pathologies with indicated medications.. 15:17 ED course: Workup negative including ultrasound. Will safely discharge patient home sp3 with PCP follow-up.. 10/04 14:14 Order name: Uric Acid; Complete Time: 15:05 sp3 10/04 14:15 Order name: CBC with Diff; Complete Time: 15:05 sp3 10/04 14:15 Order name: Chem 7; Complete Time: 15:05 sp3 10/04 12:06 Order name: Foot Right 3 View XRAY; Complete Time: 13:47 sp3 10/04 14:14 Order name: US Extremity Venous Unilateral Ltd; Complete Time: 15:30 sp3 Administered Medications: No medications were administered Disposition Summary: 10/04/24 15:20 Discharge Ordered Notes: Location: Home sp3 Condition: Stable sp3 Diagnosis - Foot swelling, dependent edema sp3 Followup: sp3 - With: Private Physician - When: Upon discharge from the Emergency Department - Reason: Continuance of care Discharge Instructions: - Discharge Summary Sheet sp3 - Edema sp3 Forms: - Medication Reconciliation Form sp3 - Antibiotic Education sp3 - Prescription Opioid Use sp3 - Patient Portal Instructions sp3 - Leadership Thank You Letter sp3 Signatures: Dispatcher [employer] Hyacinth Dover MD MD sp3 Baudilio Moise RN RN ar8
--- NOTE | 2024-10-04 15:20 | ER ---
Nurse's Notes [facility] Name: Marilee Henderson Age: 54 yrs Sex: Female : 1970 Arrival Date: 10/04/2024 Time: 11:30 Bed 20 Private MD: Diagnosis: Foot swelling, dependent edema Presentation: 10/04 11:57 Chief complaint: Patient states: C/O right foot with swelling x1 week. Coronavirus ar8 screen: At this time, the client does not indicate any symptoms associated with coronavirus-19. Ebola Screen: No symptoms or risks identified at this time. Initial Sepsis Screen: Does the patient meet any 2 criteria? No. Patient's initial sepsis screen is negative. Does the patient have a suspected source of infection? No. Patient's initial sepsis screen is negative. Risk Assessment: Do you want to hurt yourself or someone else? Patient reports no desire to harm self or others. Onset of symptoms was September 27, 2024. 11:57 Method Of Arrival: Ambulatory ar8 11:57 Acuity: KEVIN 3 ar8 Triage Assessment: 12:00 General: Appears in no apparent distress. uncomfortable, Behavior is calm, cooperative, ar8 appropriate for age. Pain: Complains of pain in right foot, anterior aspect of right ankle and dorsum of right foot. 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 - Infectious Disease History:: Denies. - Social history:: Smoking status: Patient denies any tobacco usage or history of. Screenin:33 [facility] ED Fall Risk Assessment (Adult) History of falling in the last 3 months, jl7 including since admission No falls in past 3 months (0 pts) Confusion or Disorientation No (0 pts) Intoxicated or Sedated No (0 pts) Impaired Gait No (0 pts) Mobility Assist Device Used No (0 pt) Altered Elimination No (0 pt) Score/Fall Risk Level 0 - 2 = Low Risk Oriented to surroundings, Maintained a safe environment. Abuse screen: Denies threats or abuse. Denies injuries from another. Nutritional screening: No deficits noted. Tuberculosis screening: No symptoms or risk factors identified. Assessment: 14:33 General: Appears in no apparent distress. uncomfortable, Behavior is calm, cooperative, jl7 appropriate for age. Pain: Complains of pain in right leg Pain currently is 10 out of 10 on a pain scale. Neuro: Byrd Agitation-Sedation Scale (RASS): 0 - Alert and Calm Level of Consciousness is awake, alert, obeys commands, Oriented to person, place, time, situation. Cardiovascular: Patient's skin is warm and dry. Respiratory: Airway is patent Respiratory effort is even, unlabored, Respiratory pattern is regular, symmetrical. Derm: Skin is pink, warm \T\ dry. Musculoskeletal: Swelling present in right leg. Vital Signs: 11:57 BP 140 / 87; Pulse 88; Resp 18; Temp 98.4; Pulse Ox 100% ; Weight 81.65 kg; Height 5 ar8 ft. 0 in. ; Pain 10/10; 15:29 BP 132 / 82; Pulse 85; Resp 15; Pulse Ox 100% ; jl7 11:57 Body Mass Index 35.15 (81.65 kg, 152.4 cm) ar8 11:57 Pain Scale: Adult ar8 ED Course: 11:38 Patient arrived in ED. im 11:39 Hyacinth Helton MD is Attending Physician. sp3 12:00 Triage completed. ar8 12:00 Arm band placed on right wrist. ar8 13:14 Foot Right 3 View XRAY In Process Unspecified. EDMS 14:22 Sola Tarango RN is Primary Nurse. jl7 14:33 Sola Tarango RN is Primary Nurse. jl7 14:33 Initial lab(s) drawn, by fl, sent to lab. Inserted saline lock: 20 gauge in right jl7 antecubital area, using aseptic technique. Blood collected. Flushed with 10 mL NS. 15:15 US Extremity Venous Unilateral Ltd In Process Unspecified. EDMS 15:30 No provider procedures requiring assistance completed. IV discontinued, intact, jl7 bleeding controlled, No redness/swelling at site. Pressure dressing applied. 15:31 Patient has correct armband on for positive identification. Provided Education on: jl7 discharge. Administered Medications: No medications were administered Medication: 14:33 VIS not applicable for this client. jl7 Outcome: 15:20 Discharge ordered by . sp3 15:30 Discharged to home ambulatory, jl7 15:30 Condition: stable 15:30 Discharge instructions given to patient, Instructed on discharge instructions, follow up and referral plans. Demonstrated understanding of instructions, follow-up care, 15:31 Patient left the ED. jl7 Signatures: Dispatcher [employer] Sola Zuleta RN RN jl7 Hyacinth Helton MD MD sp3 Aure Magana Andrea, RN RN ar8
--- NOTE | 2024-10-04 15:26 | RAD REPORT ---
EXAM:Extremity Venous Uni Ltd HISTORY: Right leg swelling TECHNIQUE: Sonographic evaluation right lower extremity performed.Grayscale, color and spectral jacob sis performed on all vessels COMPARISON: None. FINDINGS: Right common femoral, superficial femoral, greater saphenous, popliteal and posterior tibial veins ar e compressible and demonstrate augmentation. Doppler demonstrates good flow. IMPRESSION: No evidence of deep venous thrombosis involving the right lower extremity.
[2024-10-04 21:47] VITALS: O2SAT 100
[2024-10-04 22:03] VITALS: TEMP 98.3
[2024-10-04 22:07] VITALS: BP 114/67
== END 2024-10-04 15:31 | disposition home or self-care (01) ==
LOC: ER 11:30
DX: R60.9 Edema, unspecified (principal)
CPT/HCPCS: 36415; 80048; 84550; 85025; 93971; 99283